=== PATIENT | male | born 1960 | race African-American/Black ===

== ENCOUNTER 2022-12-02 13:09 | Emergency (ER) | payer BC, SELFPAY ==
[2022-12-02] VITALS (9 sets, daily range): BP systolic 176; BP diastolic 96; PULSE 88; RESP 18; TEMP 36.6; O2SAT 100
--- NOTE | ~2022-12-02 | CT_ITS ---
EXAMINATION: CT abdomen pelvis w con DATE: 12/02/2022 15:45 INDICATION: Abdominal pain TECHNIQUE: Computed tomography (CT) of the abdomen and pelvis was performed with 100 mL Omnipaque-350 intravenous contrast. Automated exposure control and iterative reconstruction technique were employe d. The dose-length product was 190.97 mGy-cm. COMPARISON: None FINDINGS: Mild emphysema at the lung bases. Heart size is normal. No pericardial or pleural effusion. Diffuse h epatic steatosis with focal sparing along the gallbladder fossa and small region of more focal fat at the ligamentum teres. Gallbladder, spleen, bilateral adrenal glands and kidneys are normal. There is prominent asymmetric wall thickening at the gastric pylorus and first and second portions of the duo denum with mild haziness to the surrounding fat suggesting inflammation such as in the setting of pep tic ulcer disease. A 12 x 8 mm rim enhancing lesion along the medial side of the pylorus suspicious f or peptic ulcer. Pancreas is unremarkable aside from the from trace stranding about the head and unci demond process. More distal bowels are unremarkable. Bladder is normal. Prostatomegaly measuring 5.0 x 3.7 cm. No abscess or free intraperitoneal gas or fluid. No pathologically enlarged abdominal or pelv ic lymphadenopathy. There is calcified atherosclerosis of the aorta and many of the other arteries. M oderate lumbar and lower thoracic spondylosis. IMPRESSION: 1. Wall thickening at the gastric pylorus and proximal duodenum with inflammatory stranding along the duodenum and head and uncinate process of the pancreas. There appears to be ulceration arising from the gastric pylorus and would favor peptic ulcer disease. Differential would include acute interstiti al pancreatitis and would correlate with amylase and lipase levels. 2. Diffuse hepatic steatosis. 3. Prostatomegaly. Reviewed, dictated and finalized at location A. IMPRESSION: 1. Wall thickening at the gastric pylorus and proximal duodenum with inflammato ry stranding along the duodenum and head and uncinate process of the pancreas. There appears to be ulceration arising from the gastric pylorus and would favor peptic ulcer disease. Differential would include acute interstitial pancreatit is and would correlate with amylase and lipase levels. 2. Diffuse hepatic steatosis. 3. Prostatomegaly.
[2022-12-02] MEDS: SODIUM CHLORIDE 0.9% IV 1,000 ML 999 ML IV CONT (15:06)
[2022-12-02] MEDS: ONDANSETRON INJ 4 MG/2 ML VIAL IV PUSH (15:06)
[2022-12-02 15:13] LABS: Basophils Percent Auto 0.3 % (0.2-1.2); Eosinophils Percent Auto 0.2 % (0-4.4); Hemoglobin 16.9 g/dL (14.0-18.0); Immature Granulocyte Absolute 0.06 K/mm3 (0.00-0.031); Immature Granulocyte Percent A 0.6 % (0-0.5); Lymphocytes Absolute Auto 2.24 K/mm3 (0.9-3.2); Mean Corpuscular HGB Conc 35.2 g/dl (32-36); Mean Corpuscular Hemoglobin 37.1 pg (26-34); Mean Corpuscular Volume 105.3 fl (80-100); Mean Platelet Volume 9.5 fl (7.4-10.4); Monocytes Percent Auto 9.5 % (2.6-8.5); Neutrophils Absolute Auto 7.3 K/mm3 (1.3-6.7); Neutrophils Percent Auto 68.4 % (45.5-73.1); Platelet Count Result 236 k/mm3 (150-375); Red Blood Count 4.56 M/mm3 (4.6-6.20); Red Cell Distribution Width 11.6 % (11.5-14.5); White Blood Count 10.7 K/mm3 (4.5-10.0)
[2022-12-02 15:25] LABS: Alanine Aminotransferase 21 U/L (6-50); Albumin Level 4.4 g/dL (3.5-5.1); Alkaline Phosphatase 86 U/L (38-126); Anion Gap 14 mmol/L (8-16); Aspartate Amino Transferase 31 U/L (17-59); Bilirubin,Total 0.9 mg/dL (0.2-1.3); Blood Urea Nitrogen 9 mg/dL (9-20); Calcium 9.3 mg/dL (8.4-10.2); Carbon Dioxide 18 mmol/L (22-30); Chloride 101 mmol/L (98-107); Estimated CRCL calculation 85 ml/min; Estimated Glomerular Filt Rate > 60; Glucose 120 mg/dL (65-110); Magnesium 1.8 mg/dL (1.6-2.3); Potassium 4.9 mmol/L (3.4-5.0); Sodium 133 mmol/L (137-145)
[2022-12-02 15:57] LABS: Influenza A QL RT-PCR Negative (Negative); Influenza B QL RT-PCR Negative (Negative); SARS-CoV-2 RNA PCR Negative (Negative)
[2022-12-02 16:23] LABS: Lipase 93 U/L (23-300)
[2022-12-02] MEDS: PANTOPRAZOLE 40 MG TABLET PO (16:38)
[2022-12-02 16:44] LABS: Appearance Urine Clear (Clear); Bilirubin Urine Negative (Negative); Blood Urine Negative (Negative); Color Urine Yellow (Yellow); Glucose Urine UA Negative (Negative); Ketones Urine 3+ mg/dL (Negative); Leukocyte Esterase Ur Negative LEU/UL (Negative); Nitrate Urine Negative (Negative); Protein Urine Negative (Negative)
[2022-12-02 17:14] LABS: Add Urine Microscopic? NO; Specific Grav Ur 1.052 (1.001-1.035)
--- NOTE | 2022-12-02 17:51 | ED.GENADULT ---
HPI - General Adult General Chief complaint: Fever Stated complaint: fever Time Seen by Provider: 12/02/22 14:30 History of Present Illness HPI narrative: This is a 62-year-old male, past history of GERD, who presents to the emergency department complaining of intermittent subjective fevers for the past 3 days. The patient also complains of intermittent mild epigastric pain with nausea and nonbloody vomiting. He is associated with decreased appetite which is unusual for him. He denies known sick contacts, recent travel, chest pain, shortness of breath, bleeding from any source or loss of consciousness. Related Data Allergies Allergy/AdvReac Type Severity Reaction Status Date / Time No Known Allergies Allergy Verified 12/02/22 13:16 Review of Systems Review of Systems: CONSTITUTIONAL: Subjective fevers denies chills, or sweats. CARDIOVASCULAR: Denies chest pain, palpitations, or edema. RESPIRATORY: Denies cough or dyspnea. GASTROINTESTINAL: Intermittent epigastric abdominal pain, nausea and nonbloody vomiting denies diarrhea. GENITOURINARY: Denies dysuria or hematuria. SKIN: Denies rash or itching. MUSCULOSKELETAL: Denies back pain, joint pain, or myalgia. NEUROLOGIC: Denies headache, numbness, dizziness, or weakness. PSYCHIATRIC: Denies anxiety or depression. [facility] Past Medical History Medical History GERD (gastroesophageal reflux disease) Social History Social History Smoking status: Current some day smoker Alcohol intake: current Substance use: never Exam Narrative: GENERAL: Well-developed, well-nourished, and in no acute distress. HEAD: Normocephalic, atraumatic. EYES: PERRLA and EOMI. ENT: Nares clear, no rhinorrhea or epistaxis. Mucous membranes moist. Oropharynx without tonsillar hypertrophy exudate or other lesions. CHEST: Clear to auscultation. No respiratory distress. No wheezes rales or rhonchi HEART: Regular rate and rhythm. No murmur heard. Normal peripheral pulses. ABDOMEN: Soft, nontender, nondistended, normal active bowel sounds. EXTREMITIES: Normal range of motion. No edema. SKIN: Warm, dry, no rash. NEURO: Alert and oriented x3. Moving all 4 limbs purposefully. PSYCH: Normal mood and affect. Course Course Emergency Course: 17:45 - CBC demonstrates slightly elevated white blood cell count of 10.7 but is otherwise unremarkable. Chemistries demonstrate mild hyponatremia with sodium of 133 but otherwise unremarkable. UA not concerning for UTI. The patient tested negative for COVID and influenza. CT abdomen pelvis demonstrates changes at the duodenum versus pancreas that may reflect peptic ulcer disease versus pancreatitis. Lipase is not elevated, I suspect peptic ulcer disease. Will discharge with omeprazole and Zofran. Discussed return and emergency precautions including signs/symptoms of acute abdomen and intractable vomiting. The patient voiced understanding and is comfortable with the plan. All questions answered to his satisfaction. Vital Signs Vital signs: Vital Signs Temperature 98 F 12/02/22 13:16 Pulse Rate 88 12/02/22 13:16 Respiratory Rate 18 12/02/22 13:16 Blood Pressure 176/96 H 12/02/22 13:16 Pulse Oximetry 100 12/02/22 13:16 Oxygen Delivery Room Air 12/02/22 13:16 Temperature 97.9 F 12/02/22 14:36 Pulse Rate 88 12/02/22 13:16 Respiratory Rate 18 12/02/22 13:16 Blood Pressure 176/96 H 12/02/22 13:16 Pulse Oximetry 100 12/02/22 16:27 Oxygen Delivery Room Air 12/02/22 13:[address] [facility] Narrative Medical decision making narrative: Plan: Labs, imaging, antiemetics, pain control, reassess Differential Diagnosis Differential Diagnosis: Pancreatitis, malignancy, diverticulitis, UTI, gastritis, peptic ulcer disease, COVID, influenza, metabolic abnormality, other Vital Signs Vital Signs:
== END 2022-12-02 18:31 | disposition home or self-care (01) ==
PROVIDERS: Emergency Provider Preventive Medicine Aerospace Medicine
DX: K26.9 Duodenal ulcer, unspecified as acute or chronic, without hemorrhage or perforation (principal); R11.2 Nausea with vomiting, unspecified; Z20.822 Contact with and (suspected) exposure to COVID-19; K21.9 Gastro-esophageal reflux disease without esophagitis; F17.200 Nicotine dependence, unspecified, uncomplicated
CPT/HCPCS: 36415; 74177; 80053; 81003; 83690; 83735; 85025; 87636; 96361; 96374; 99284; A9270; J2405; J7030; Q9967

== ENCOUNTER 2023-05-15 10:08 | Outpatient (CLI) | payer BC, SELFPAY ==
[2023-05-15 12:27] LABS: Appearance Urine Clear (Clear); Bilirubin Urine Negative (Negative); Blood Urine Negative (Negative); Color Urine Yellow (Yellow); Glucose Urine UA Negative (Negative); Ketones Urine Negative (Negative); Leukocyte Esterase Ur Negative LEU/UL (Negative); Nitrate Urine Negative (Negative); Protein Urine Negative (Negative); Specific Grav Ur 1.009 (1.001-1.035)
[2023-05-15 12:30] LABS: Add Urine Microscopic? NO
[2023-05-15 12:55] LABS: Alanine Aminotransferase 29 U/L (6-50); Albumin Level 4.1 g/dL (3.5-5.1); Alkaline Phosphatase 89 U/L (38-126); Anion Gap 8 mmol/L (8-16); Aspartate Amino Transferase 93 U/L (17-59); Bilirubin,Total 0.8 mg/dL (0.2-1.3); Blood Urea Nitrogen 5 mg/dL (9-20); Calcium 8.8 mg/dL (8.4-10.2); Carbon Dioxide 26 mmol/L (22-30); Chloride 107 mmol/L (98-107); Estimated Glomerular Filt Rate > 60; Glucose 90 mg/dL (65-110); Sodium 141 mmol/L (137-145)
[2023-05-15 13:12] LABS: Thyroid Stimulating Hormone 0.696 uIU/mL (0.465-4.680)
[2023-05-15 13:18] LABS: Hemoglobin A1C 6.2 % (<5.7)
[2023-05-15 13:19] LABS: HIV 1/2 Ab P24 Ag Result Negative (Negative)
[2023-05-15 13:23] LABS: Hepatitis B Surface Antigen Negative (Negative)
[2023-05-15 13:23] LABS: Potassium 3.6 mmol/L (3.4-5.0)
[2023-05-15 13:23] LABS: Creatinine Urine 70.7 mg/dL
[2023-05-15 13:29] LABS: MALB Creatinine Ratio 55.3 mg/g (0-30); Microalbumin Urine Random 39.1 mg/L (0-16.7)
[2023-05-15 13:40] LABS: Hepatitis C Virus Antibody Negative (Negative)
[2023-05-15 14:07] LABS: Chlamydia trachomatis NOT DETECTED (NOT DETECTE); Neisseria gonorrhoeae PCR NOT DETECTED (NOT DETECTE)
[2023-05-15 15:12] LABS: Rapid Plasma Reagin Non-Reactive (NonReactive)
[2023-05-15 16:01] LABS: Prostate Specific Antigen 1.6 ng/mL (< OR = 4.0)
[2023-05-20 09:38] LABS: Thyroid Peroxidase Antibodies <1
[2023-05-20 09:39] LABS: Herpes Simplex Type 1 DNA PCR Not Detected; Herpes Simplex Type 2 DNA PCR Not Detected
== END 2023-05-15 10:09 | disposition home or self-care (01) ==
LOC: ANHGOSHLAB 10:09
PROVIDERS: Visit Provider Clinical Nurse Specialist
DX: F10.20 Alcohol dependence, uncomplicated (principal); I10 Essential (primary) hypertension; Z13.220 Encounter for screening for lipoid disorders; Z13.228 Encounter for screening for other metabolic disorders; Z86.19 Personal history of other infectious and parasitic diseases; R63.4 Abnormal weight loss; Z20.2 Contact with and (suspected) exposure to infections with a predominantly sexual mode of transmission; Z12.5 Encounter for screening for malignant neoplasm of prostate
CPT/HCPCS: 36415; 80053; 81003; 82043; 83036; 84153; 84443; 86376; 86592; 86703; 86803; 87340; 87491; 87529; 87591; G0103; G0432

== ENCOUNTER 2023-06-20 08:10 | Outpatient (CLI) | payer BC, SELFPAY ==
[2023-06-20 13:23] LABS: Basophils Percent Auto 0.4 % (0.2-1.2); Eosinophils Absolute Auto 0.1 K/mm3 (0-0.3); Eosinophils Percent Auto 0.8 % (0-4.4); Hematocrit 39.6 % (42.0-52.0); Hemoglobin 13.7 g/dL (14.0-18.0); Immature Granulocyte Absolute 0.04 K/mm3 (0.00-0.031); Immature Granulocyte Percent A 0.5 % (0-0.5); Lymphocytes Absolute Auto 3.25 K/mm3 (0.9-3.2); Lymphocytes Percent Auto 41.8 % (18.3-44.2); Mean Corpuscular HGB Conc 34.6 g/dl (32-36); Mean Corpuscular Hemoglobin 36.9 pg (26-34); Mean Corpuscular Volume 106.7 fl (80-100); Mean Platelet Volume 9.9 fl (7.4-10.4); Monocytes Absolute Auto 0.8 K/mm3 (0.1-0.6); Monocytes Percent Auto 10.5 % (2.6-8.5); Neutrophils Absolute Auto 3.6 K/mm3 (1.3-6.7); Platelet Count Result 398 k/mm3 (150-375); Red Blood Count 3.71 M/mm3 (4.6-6.20); Red Cell Distribution Width 12.5 % (11.5-14.5); White Blood Count 7.8 K/mm3 (4.5-10.0)
[2023-06-20 13:44] LABS: Cholesterol 148 mg/dL (0-200); HDL Direct 72 mg/dL; Triglycerides 73 mg/dL (<150)
[2023-06-20 14:13] LABS: LDL Cholesterol Direct 65 mg/dL
[2023-06-20 14:59] LABS: Folic Acid 11.2 ng/mL (2.76->20)
[2023-06-24 12:03] LABS: NIL 0.03 IU/mL; Quantiferon TB Plus, 1T POSITIVE (NEGATIVE); TB1-NIL 8.55 IU/mL; TB2-NIL 8.54 IU/mL
== END 2023-06-20 08:11 | disposition home or self-care (01) ==
LOC: ANHGOSHLAB 08:11
PROVIDERS: PCP Internal Medicine; Visit Provider Clinical Nurse Specialist
DX: F10.20 Alcohol dependence, uncomplicated (principal); I10 Essential (primary) hypertension; Z13.220 Encounter for screening for lipoid disorders; Z86.19 Personal history of other infectious and parasitic diseases; Z13.228 Encounter for screening for other metabolic disorders
CPT/HCPCS: 36415; 80061; 82607; 82746; 85025; 86480

== ENCOUNTER 2023-09-02 16:11 | Outpatient (CLI) | payer BC, SELFPAY ==
--- NOTE | ~2023-09-02 | XR_ITS ---
EXAMINATION: XR chest 2V 09/02/2023 16:32 INDICATION: Exposure to tuberculosis PROCEDURE: 2 view chest COMPARISON: No prior studies for comparison. FINDINGS: The lungs are clear. The lungs are hyperinflated which is consistent with, but not diagnost ic of chronic obstructive pulmonary disease. The cardiomediastinal silhouette is within normal limit s. There are no pleural effusions. There is no pneumothorax suspected. IMPRESSION: 1: NO ACUTE CARDIOPULMONARY DISEASE. Reviewed, dictated and finalized at location B.
== END 2023-09-02 16:12 | disposition home or self-care (01) ==
LOC: ANHIMG 16:13
PROVIDERS: PCP Internal Medicine; Visit Provider Clinical Nurse Specialist
DX: Z20.1 Contact with and (suspected) exposure to tuberculosis (principal)
CPT/HCPCS: 71046

== ENCOUNTER 2023-10-28 02:05 | Day surgery (SDC) | payer BC, SELFPAY ==
[2023-10-24 08:58] VITALS: BMI 19.1
[2023-10-28 06:12] VITALS: BP 164/95; PULSE 96; RESP 18; TEMP 36.3; O2SAT 100; BMI 19.1
[2023-10-28] MEDS: LACTATED RINGERS 1,000 ML 150 ML IV CONT (06:39)
--- NOTE | 2023-10-28 06:41 | P.PNAN_ITS ---
Anes - Initial Pre Proc Eval Procedure: Operation Date: 10/28/23 07:30 Proposed Procedures p Esophagogastroduodenoscopy & Colonoscopy - Shar Mancera MD Date/Time: 10/28/23 06:41 Surgeon: Shar Mancera MD Pre Op Diagnosis: Anemia, GERD, Abnormal Wt. Loss Patient Data Age: 63 Gender: M Height: 1.65 m Weight: 52.1 kg Last Vital Signs Temp 36.3 C L 10/28/23 06:12 Pulse 96 10/28/23 06:12 Resp 18 10/28/23 06:12 BP 164/95 H 10/28/23 06:12 Pulse Ox 100 10/28/23 06:12 O2 Del Method Room Air 10/28/23 06:12 Allergies Allergy/AdvReac Type Severity Reaction Status Date / Time No Known Allergies Allergy Verified 10/28/23 06:27 Home Medications Medication Instructions Recorded Confirmed Type sildenafil 50 mg tablet 50 mg PO DAILY PRN sexual activity 06/20/23 10/28/23 Rx #30 tabs amlodipine 10 mg tablet 10 mg PO DAILY #90 tabs 10/01/23 10/28/23 Rx Patient hx anesthesia problems: none Family hx anesthesia problems: none Results Review: All pre-operative results and documents have been reviewed as part of the pre- operative evaluation. [facility], [facility] Past Medical History Medical History (Updated 10/03/23 @ 13:30 by SILVA Fine-C) GERD (gastroesophageal reflux disease) Family History Family History Mother Breast cancer Social History Social History Smoking packs per day: 0.5 Smoking cigarettes per day: 10.0 Years smoked: 49 Smoking pack-years: 24.50 Smoking status: Current every day smoker Tobacco type: cigarettes Alcohol intake: current Drinks per week: 14 Alcohol use details: Drinks sotero 2x daily Substance use: never Substance use type: does not use Lack of Transportation: No Lack of Food: Never True Current Housing: I Have Housing Concerned About Future Housing: No Difficulty Paying Gas/Electric Bills: No Difficulty Paying for Meds: No Currently Unemployed: No Education: Trade/Vocational Certificate Difficulty w/ Childcare or Family Care: No Living arrangements: with family Occupation/Education: occupation Additional occupation/education comments: [employer] Gender identity (if verbalized by the patient): Male Spiritual care concerns: No Anes - Eval Final PreProcedure Day of Procedure 10/28/23 06:41 Patient weight: normal Heart: regular rate and rhythm Lungs: clear to auscultation Airway: Mallampati scale class 1 Neurological: alert and oriented Last oral intake: >/= 8 hours ASA classification: III Emergent: no Anesthetic plan: proceed Anesthesia type and monitoring: general and standard monitoring Results Review: All pre-operative results and documents have been reviewed as part of the pre- operative evaluation. Informed Consent: The patient's anesthetic plan and its attendant risks and benefits were discussed with the patient/family/POA. Questions were solicited and answers provided to the satisfaction of the patient/family/POA.
--- NOTE | 2023-10-28 07:27 | P.HP_ITS ---
History of Present Illness History of Present Illness Consent: Risks, benefits, and alternatives have been discussed and questions answered. Patient agrees to proceed with procedure. Chief complaint: Anemia, GERD, Abnormal Wt. Loss Narrative: Kody Franco is a 63 year old male here for first egd and colonoscopy, indication is weight loss. Review of Systems Review of Systems: All systems reviewed & are unremarkable except as noted in HPI and below PMFSH Past Medical History Medical History (Updated 10/28/23 @ 07:28 by Shar Mancera MD) GERD (gastroesophageal reflux disease) Weight loss Family History Family History Mother Breast cancer Social History Social History Smoking packs per day: 0.5 Smoking cigarettes per day: 10.0 Years smoked: 49 Smoking pack-years: 24.50 Smoking status: Current every day smoker Tobacco type: cigarettes Alcohol intake: current Drinks per week: 14 Alcohol use details: Drinks sotero 2x daily Substance use: never Substance use type: does not use Lack of Transportation: No Lack of Food: Never True Current Housing: I Have Housing Concerned About Future Housing: No Difficulty Paying Gas/Electric Bills: No Difficulty Paying for Meds: No Currently Unemployed: No Education: Trade/Vocational Certificate Difficulty w/ Childcare or Family Care: No Living arrangements: with family Occupation/Education: occupation 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 [employer] Gender identity (if verbalized by the patient): Male Spiritual care concerns: No Meds Home Medications and Allergies Home Medications Medication Instructions Recorded Confirmed Type sildenafil 50 mg tablet 50 mg PO DAILY PRN sexual activity 06/20/23 10/28/23 Rx #30 tabs amlodipine 10 mg tablet 10 mg PO DAILY #90 tabs 10/01/23 10/28/23 Rx Allergies Allergy/AdvReac Type Severity Reaction Status Date / Time No Known Allergies Allergy Verified 10/28/23 06:27 Vital Signs Vital Signs - 24 hr 10/28/23 06:12 Temperature 97.4 F L Pulse Rate 96 Respiratory Rate 18 Blood Pressure 164/95 H Pulse Oximetry 100 Oxygen Delivery Room Air Exam Const: General: comfortable and no acute distress HENMT: Face/Nose/Sinus: Normal nares present Eyes: General: appearance normal, both eyes and all related structures Neck: Neck: no JVD Resp: Auscultation: clear to auscultation bilaterally Cardio: Rate: regular rate Rhythm: regular rhythm GI: Inspection: non-distended GI Palp: Yes Soft to palpation Skin: General skin exam: normal color Neuro: General: gait normal Speech: normal speech Extrem: General: normal to inspection Psych: Mental Status: mental status grossly normal Assessment and Plan Assessment and plan (1) Anemia: Code(s): D64.9 - Anemia, unspecified Status: Acute (2) Weight loss: Code(s): R63.4 - Abnormal weight loss Status: Acute Assessment and Plan: egd and colonoscopy
--- NOTE | 2023-10-28 07:45 | SUR.OPER ---
EGD start 734, end 738. Colonoscopy start time 742
[2023-10-28 08:02] VITALS: BP 133/92; PULSE 95; RESP 22; O2SAT 100
[2023-10-28 08:12] VITALS: BP 112/73; PULSE 86; RESP 20; O2SAT 100
[2023-10-28 08:16] VITALS: BP 143/90; PULSE 80; RESP 9; O2SAT 100
== END 2023-10-28 08:36 | disposition home or self-care (01) ==
PROVIDERS: PCP Internal Medicine; Referring Provider Clinical Nurse Specialist; Visit Provider Internal Medicine Gastroenterology
PROC: 0DJ08ZZ Inspection of Upper Intestinal Tract, Via Natural or Artificial Opening Endoscopic (ICD-10-PCS; CPT 43235; principal; 2023-10-28 07:30)
DX: D64.9 Anemia, unspecified (principal); D12.3 Benign neoplasm of transverse colon; D12.8 Benign neoplasm of rectum; K64.8 Other hemorrhoids; R63.4 Abnormal weight loss; K21.9 Gastro-esophageal reflux disease without esophagitis; F17.210 Nicotine dependence, cigarettes, uncomplicated; Z68.1 Body mass index [BMI] 19.9 or less, adult
CPT/HCPCS: 45380; 45385; 43239; 88305; J2704; J7120

== ENCOUNTER 2023-11-25 06:52 | Outpatient (CLI) | payer BC, SELFPAY ==
--- NOTE | ~2023-11-25 | CT_ITS ---
CT Scan of the Chest without Contrast: Clinical Indication: Lung cancer screening, nicotine dependence Technique: Contiguous sections were acquired throughout the chest without intravenous contrast. Dose reduction technique was used on this scan by utilizing automated exposure control and iterative recon struction technique. The dose-length product (DLP) was 67.40 mGy-cm. Findings: There is no evidence of any significant mediastinal, hilar or axillary lymphadenopathy. The mediastin al soft tissues appear normal. There is no evidence of pleural or pericardial effusion. There is moderate emphysema with right apical scarring. No pulmonary nodule evident. Images through the upper abdomen reveal diffuse hepatic steatosis. Impression: Lung RADS 2: Benign appearance. 12 month follow-up screening CT advised. Reviewed, dictated and finalized at location . Impression: Lung RADS 2: Benign appearance. 12 month follow-up screening CT advised.
--- NOTE | ~2023-11-25 | CT_ITS ---
CT of the Abdomen and Pelvis: Indication: Abnormal weight loss Technique: 2.5 mm axial scans were obtained through the abdomen and pelvis following intravenous adm inistration of 100 cc of Omnipaque 350. Dose reduction technique was used on this scan by utilizing a utomated exposure control and iterative reconstruction technique. The dose-length product (DLP) was 1 80.87 mGy-cm. COMPARISON: 12/02/2022 Findings: Scans through the lung bases are unremarkable. There is marked, diffuse hepatic steatosis. The spleen, pancreas, gallbladder, adrenals and kidneys a re within normal limits. Questionable minimal peripancreatic haziness. There are extensive atheroscle rotic calcifications of the aorta and iliac vessels. No lymphadenopathy. Possible mild diffuse large bowel wall thickening. Images through the pelvis were performed. Urinary bladder unremarkable. No pelvic mass seen. No ascit es. Impression: Suspected mild diffuse large bowel wall thickening. Correlate for infectious/inflammatory colitis. Diffuse hepatic steatosis. Questionable minimal peripancreatic haziness. Consider mild acute pancreatitis. Correlate with serum amylase/lipase levels. Reviewed, dictated and finalized at [facility]. Impression: Suspected mild diffuse large bowel wall thickening. Correlate for infectious/in flammatory colitis. Diffuse hepatic steatosis. Questionable minimal peripancreatic haziness. Consider mild acute pancreatitis. Correlate with serum amylase/lipase levels.
[2023-11-25 08:20] LABS: Basophils Absolute Auto 0.1 K/mm3 (0.0-0.1); Basophils Percent Auto 0.6 % (0.2-1.2); Eosinophils Absolute Auto 0.1 K/mm3 (0-0.3); Eosinophils Percent Auto 0.8 % (0-4.4); Hematocrit 37.3 % (42.0-52.0); Hemoglobin 13.2 g/dL (14.0-18.0); Immature Granulocyte Absolute 0.03 K/mm3 (0.00-0.031); Immature Granulocyte Percent A 0.3 % (0-0.5); Lymphocytes Absolute Auto 3.15 K/mm3 (0.9-3.2); Lymphocytes Percent Auto 35.8 % (18.3-44.2); Mean Corpuscular HGB Conc 35.4 g/dl (32-36); Mean Corpuscular Hemoglobin 37.6 pg (26-34); Mean Corpuscular Volume 106.3 fl (80-100); Mean Platelet Volume 9.2 fl (7.4-10.4); Monocytes Absolute Auto 0.7 K/mm3 (0.1-0.6); Neutrophils Absolute Auto 4.8 K/mm3 (1.3-6.7); Neutrophils Percent Auto 54.5 % (45.5-73.1); Platelet Count Result 289 k/mm3 (150-375); Red Blood Count 3.51 M/mm3 (4.6-6.20); White Blood Count 8.8 K/mm3 (4.5-10.0)
[2023-11-25 08:42] LABS: Alanine Aminotransferase 35 U/L (6-50); Albumin Level 3.8 g/dL (3.5-5.1); Alkaline Phosphatase 97 U/L (38-126); Anion Gap 12 mmol/L (4-12); Aspartate Amino Transferase 130 U/L (17-59); Blood Urea Nitrogen 6 mg/dL (9-20); Calcium 8.1 mg/dL (8.4-10.2); Carbon Dioxide 31 mmol/L (22-30); Chloride 91 mmol/L (98-107); Estimated Glomerular Filt Rate > 60; Glucose 105 mg/dL (65-110); Potassium 2.7 mmol/L (3.4-5.0); Sodium 134 mmol/L (137-145)
[2023-11-25 09:14] LABS: Erythrocyte Sedimentation Rate 12 mm/hr (0-20)
[2023-11-25 10:03] LABS: Creatinine Urine 37.1 mg/dL
[2023-11-25 10:06] LABS: MALB Creatinine Ratio 116.7 mg/g (0-30); Microalbumin Urine Random 43.3 mg/L (0-16.7)
[2023-11-25 10:32] LABS: Anisocytosis 1+; Platelet Estimate Adequate (Adequate); Schistocytes None Seen
[2023-11-25 12:13] LABS: Amylase 91 U/L (30-110); Lipase 67 U/L (23-300)
[2023-11-28 11:57] LABS: Estimated Glomerular Filt Rate > 60
[2023-12-04 18:38] LABS: Thyroid Stimulating Immunoglob <89 % baseline (<140)
== END 2023-11-25 06:53 | disposition home or self-care (01) ==
LOC: ANHIMG 06:54
PROVIDERS: PCP Internal Medicine; Visit Provider Clinical Nurse Specialist
DX: R63.4 Abnormal weight loss (principal); F10.20 Alcohol dependence, uncomplicated; K76.0 Fatty (change of) liver, not elsewhere classified; Z72.0 Tobacco use; I10 Essential (primary) hypertension
CPT/HCPCS: 36415; 71271; 74177; 80053; 82043; 82150; 82607; 83036; 83690; 84443; 84445; 85025; 85652; 88305; Q9967

== ENCOUNTER → 2023-11-25 15:36 | Outpatient (REF) | payer BC, SELFPAY | LOC: ANHLAB 15:36 | PROVIDERS: PCP Internal Medicine; Visit Provider Plastic Surgery | DX: C44.319 Basal cell carcinoma of skin of other parts of face (principal) | CPT/HCPCS: 88305 ==

== ENCOUNTER 2023-11-28 06:46 | Outpatient (CLI) | payer BC, SELFPAY ==
[2023-11-28 08:38] LABS: Anion Gap 14 mmol/L (4-12); Blood Urea Nitrogen 4 mg/dL (9-20); Calcium 8.6 mg/dL (8.4-10.2); Carbon Dioxide 23 mmol/L (22-30); Chloride 102 mmol/L (98-107); Estimated Glomerular Filt Rate > 60; Glucose 121 mg/dL (65-110); Potassium 3.8 mmol/L (3.4-5.0); Sodium 139 mmol/L (137-145)
== END 2023-11-28 06:47 | disposition home or self-care (01) ==
LOC: ANHLAB 06:48
PROVIDERS: PCP Internal Medicine; Visit Provider Clinical Nurse Specialist
DX: E87.6 Hypokalemia (principal)
CPT/HCPCS: 36415; 80048

== ENCOUNTER 2024-04-07 17:03 | Inpatient (IN) | payer BC, SELFPAY ==
--- NOTE | ~2024-04-07 | XR_ITS ---
EXAMINATION: XR chest 2V DATE: 04/08/2024 08:39 INDICATION: Lactic acidosis. TECHNIQUE: Frontal and lateral views of the chest were obtained. COMPARISON: Chest 2 views 09/02/2023, chest CT 11/25/2023 FINDINGS: The lungs are hyperexpanded with lucencies, consistent with emphysema. There is mild scarri ng at right lung apex. No pleural effusion or pneumothorax. The heart size is normal. IMPRESSION: 1. Emphysema. Reviewed, dictated and finalized at location [] ST ECOLOGIST IMPRESSION: 1. Emphysema.
--- NOTE | ~2024-04-07 | XR_ITS ---
HISTORY: left knee pain, swelling COMPARISON: None TECHNIQUE: 3 views of the left knee were performed FINDINGS: No acute or subacute fracture. Multiple serpiginous foci of increased density incidentally detected within the distal femur and prox imal tibia, consistent with bone infarction. Medial tibiofemoral joint space narrowing is identified. Small suprapatellar joint effusion is identified. The infrapatellar joint space is clear. Calcified atherosclerotic disease. Ossification of the insertion of the quadriceps tendon is present. IMPRESSION: Small suprapatellar joint effusion, without acute or subacute fracture, as detailed above. Reviewed, dictated and finalized at location A. UCTION SUPPORT SUPERVISOR IMPRESSION: Small suprapatellar joint effusion, without acute or subacute fracture, as detcristal ilemaycol above.
[2024-04-07 17:08] VITALS: BP 161/113; PULSE 130; RESP 16; TEMP 36.7; O2SAT 97
--- NOTE | 2024-04-07 17:25 | ED_ITS ---
HPI - Extremity Injury (Lower) General Chief Complaint: Extremity Problem,Nontraumatic <Estela Perez PA-C - Last Filed: 04/07/24 22:38> Stated Complaint: LEFT KNEE PAIN <Estela Perez PA-C - Last Filed: 04/07/24 22:38> Time Seen by Provider: 04/07/24 17:12 <Estela Perez PA-C - Last Filed: 04/07/24 22:38> Source: patient <Estela Perez PA-C - Last Filed: 04/07/24 22:38> Mode of arrival: ambulatory <ALLA Almeida Last Filed: 04/07/24 22:38> Limitations: no limitations <Estela Perez PA-C - Last Filed: 04/07/24 22:38> History of Present Illness HPI Narrative: This is a 63 year old male that presents to the ER for left knee pain and swelling. Ongoing over the last several months. No recent injury or trauma. He has not been taking anything for pain. Reports a similar episode a couple of years ago without certain diagnosis. He has been self medicating with alcohol. Denies fever, erythema, numbness or weakness. <Estela Perez PA-C - Last Filed: 04/07/24 22:38> Related Data Allergies/Adverse Reactions: Allergies Allergy/AdvReac Type Severity Reaction Status Date / Time No Known Allergies Allergy Verified 04/07/24 17:05 <Estela Perez PA-C - Last Filed: 04/07/24 22:38> Review of Systems 2 Review of Systems: CONSTITUTIONAL: Denies fever SKIN: Denies rash MUSCULOSKELETAL: Reports joint pain, and myalgia. NEUROLOGIC: Denies numbness, or weakness. <Estela Perez PA-C - Last Filed: 04/07/24 22:38> All systems reviewed & are unremarkable except as noted in HPI and below < Estela Perez PA-C - Last Filed: 04/07/24 22:38> PMFSH Past Medical History Medical History: Medical History Elevated transaminase level Basal cell carcinoma of head Weight loss GERD (gastroesophageal reflux disease) <Estela Perez PA-C - Last Filed: 04/07/24 22:38> Family History Family History: Family History Mother Breast cancer <Estela Perez PA-C - Last Filed: 04/07/24 22:38> Social History Social History: Social History Smoking packs per day: 1 Smoking cigarettes per day: 20.0 Years smoked: 49 Smoking pack-years: 49.00 Smoking status: Current every day smoker Tobacco type: cigarettes Alcohol intake: current Drinks per week: 14 Alcohol use details: Drinks sotero 2x daily Substance use: never Substance use type: does not use Do You Feel Safe in your Home?: Yes Lack of Transportation: YES Lack of Food: Never True Current Housing: I Have Housing Concerned About Future Housing: No Difficulty Paying Gas/Electric Bills: No Difficulty Paying for Meds: No Currently Unemployed: No Education: Decline to Answer Difficulty w/ Childcare or Family Care: No Living arrangements: with family Occupation/Education: occupation Additional occupation/education comments: [employer] Gender identity (if verbalized by the patient): Male Spiritual care concerns: No Agree to blood products: No <ALLA Almeida Last Filed: 04/07/24 22:38> Exam 2 Narrative: GENERAL: Well-appearing, thin, and in no acute distress. HEAD: Normocephalic, atraumatic. EYES: EOMI. ENT: Nares clear, no rhinorrhea or epistaxis. Mucous membranes moist. Oropharynx without tonsillar hypertrophy exudate or other lesions. CHEST: Clear to auscultation. No respiratory distress. No wheezes rales or rhonchi HEART: Tachycardic, regular rhythm. No murmur heard. Normal peripheral pulses. EXTREMITIES: Normal range of motion. Mild edema about the left knee anteriorly. Normal DP pulse. Normal sensation. No erythema or warmth SKIN: Warm, dry, no rash. NEURO: No focal deficits. Alert and oriented x3. PSYCH: Normal mood and affect <ALLA Almeida Last Filed: 04/07/24 22:38> Course Course Emergency Course: patient and family updated on work and need for admission <Estela Perez PA-C - Last Filed: 04/07/24 22:38> Patient and family updated on work and need for admission <Sergio Hickman MD - Last Filed: 04/08/24 02:30> [employer]/PA Physician Supervision For this patient encounter, I reviewed the SUPERVISOR [employer] or PA documentation, treatment plan, and medical decision making and had [id number] time with this patient. I performed all aspects of the MDM as documented. <Sergio Hickman MD - Last Filed: 04/08/24 02:30> Consultations Consultation #1: Spoke with Dr. Lind about patient and workup. Patient may follow up outpatient for avascular necrosis of the knee <Estela Perez PA-C - Last Filed: 04/07/24 22:38> Date: 04/07/24 <Estela Perez PA-C - Last Filed: 04/07/24 22:38> Consultation #2: Spoke with hospitalist about patient and workup who accepts admission < Estela Perez PA-C - Last Filed: 04/07/24 22:38> Date: 04/07/24 <Estela Perez PA-C - Last Filed: 04/07/24 22:38> Vital Signs Vital signs: Vital Signs Temperature 98.1 F 04/07/24 17:08 Pulse Rate 130 H 04/07/24 17:08 Respiratory Rate 16 04/07/24 17:08 Blood Pressure 161/113 H 04/07/24 17:08 Pulse Oximetry 97 04/07/24 17:08 Oxygen Delivery Room Air 04/07/24 17:08 Temperature 98.2 F 04/08/24 00:00 Pulse Rate 88 04/08/24 02:00 Respiratory Rate 17 04/08/24 00:00 Blood Pressure 149/84 H 04/08/24 00:00 Pulse Oximetry 94 04/08/24 00:00 Oxygen Delivery Room Air 04/08/24 00:00 <Estela Perez PA-C - Last Filed: 04/07/24 22:38> Vital Signs Temperature 98.1 F 04/07/24 17:08 Pulse Rate 130 H 04/07/24 17:08 Respiratory Rate 16 04/07/24 17:08 Blood Pressure 161/113 H 04/07/24 17:08 Pulse Oximetry 97 04/07/24 17:08 Oxygen Delivery Room Air 04/07/24 17:08 Temperature 98.2 F 04/08/24 00:00 Pulse Rate 88 04/08/24 02:00 Respiratory Rate 17 04/08/24 00:00 Blood Pressure 149/84 H 04/08/24 00:00 Pulse Oximetry 94 04/08/24 00:00 Oxygen Delivery Room Air 04/08/24 00:00 <Sergio Hickman MD - Last Filed: 04/08/24 02:30> MDM - Extremity Injury (Lower) MDM Narrative Medical decision making narrative: Patient presents to the ER for left knee pain. Ongoing over the last several months. No recent injury. Patient is neurovascularly intact. Also reporting weight loss, decreased PO intake. Tachycardic upon arrival this did respond to IV fluids. CBC without leukocytosis. Inflammatory markers are not elevated. Uric acid is normal. Left knee x-ray shows small suprapatellar joint effusion. Necrosis of the distal femur as well as proximal tibia. Spoke with Dr. Lind about patient and workup. Patient may follow up outpatient for avascular necrosis of the knee. Patient's metabolic panel with evidence of alcoholic ketoacidosis. Will be admitted for further management. Spoke with hospitalist about patient and workup who accepts admission <Estela Perez PA-C - Last Filed: 04/07/24 22:38> Differential Diagnosis Differential diagnosis: Likely acute internal derangement of knee and other (osteoarthritis, osteonecrosis, gout, dehydration, alcoholic ketoacidosis) <Estela Perez PA-C - Last Filed: 04/07/24 22:38> Lab Data Attestation: I reviewed the patient's lab results. <Estela Perez PA-C - Last Filed: 04/07/24 22:38> Result diagrams: 04/07/24 17:41 04/07/24 17:41 <Estela Perez PA-C - Last Filed: 04/07/24 22:38> Labs: Lab Results 01/04/07/24 04/07/24 Range/Units 17:40 17:41 20:14 WBC 8.8 (4.5-10.0) K/mm3 RBC 4.19 L (4.6-6.20) M/mm3 Hgb 14.7 (14.0-18.0) g/dL Hct 42.9 (42.0-52.0) % MCV 102.4 H (80-100) fl MCH 35.1 H (26-34) pg MCHC 34.3 (32-36) g/dl RDW 15.3 H (11.5-14.5) % Plt Count 252 (150-375) k/mm3 MPV 8.6 (7.4-10.4) fl Immature Gran % (Auto) 0.2 (0-0.5) % Neut % (Auto) 58.4 (45.5-73.1) % Lymph % (Auto) 37.2 (18.3-44.2) % [place] % (Auto) 3.8 (2.6-8.5) % Eos % (Auto) 0.1 (0-4.4) % Baso % (Auto) 0.3 (0.2-1.2) % Lymph # (Auto) 3.27 H (0.9-3.2) K/mm3 [place] # (Auto) 0.3 (0.1-0.6) K/mm3 Eos # (Auto) 0.0 (0-0.3) K/mm3 Baso # (Auto) 0.0 (0.0-0.1) K/mm3 Abs Immat Gran (auto) 0.02 (0.00-0.031) K/mm3 Absolute Neuts (auto) 5.1 (1.3-6.7) K/mm3 Absolute Nucleated RBC 0.000 (0.0-0.012) K/mm3 Nucleated RBC % 0.0 (0.0-0.2) % ESR 8 (0-20) mm/hr PT 13.9 (11.1-14.7) Seconds INR 1.0 APTT 27.5 (22.3-36.8) Seconds Methemoglobin 0.3 (0-1.5) %THb Sodium 139 (137-145) mmol/L Potassium 3.5 (3.4-5.0) mmol/L Chloride 97 L (98-107) mmol/L Carbon Dioxide 14 L (22-30) mmol/L Anion Gap 28 H (4-12) mmol/L BUN 7 L (9-20) mg/dL Creatinine 0.44 L (0.7-1.3) mg/dL Estim Creat Clear Calc 100 ml/min Estimated GFR > 60 (59 - ) Glucose 114 H (65-110) mg/dL Hemoglobin A1c 5.9 H (<5.7) % Lactic Acid (0.7-2.0) mmol/L Uric Acid 6.8 (3.5-8.5) mg/dL Calcium 8.9 (8.4-10.2) mg/dL Phosphorus 5.5 H (2.5-4.5) mg/dL Magnesium 1.4 L (1.6-2.3) mg/dL Total Bilirubin 1.6 H (0.2-1.3) mg/dL AST 116 H (17-59) U/L ALT 30 (6-50) U/L Alkaline Phosphatase 122 (38-126) U/L C-Reactive Protein < 0.5 (<1.0) mg/dL Total Protein 8.0 (6.3-8.2) g/dL Albumin 4.9 (3.5-5.1) g/dL Beta-Hydroxybutyrate/Acetoacetate (0.02-0.27) mmol/L Urine Color (Yellow) Urine Appearance (Clear) Urine pH (5.0-9.0) Ur Specific [place] (1.001-1.035) Urine Protein (Negative) mg/dL Urine Glucose (UA) (Negative) mg/dL Urine Ketones (Negative) mg/dL Ur Blood (Man) (Negative) Urine Nitrate (Negative) Urine Bilirubin (Negative) Urine Urobilinogen (<2.0) mg/dL Leukocyte Esterase Rfl (Negative) MALKA/UL Urine RBC (0-2) /hpf Urine WBC (0-3) /hpf Ur Squamous Epith Cells (Few) /hpf Urine Bacteria /hpf Urine Casts 04/07/24 Range/Units 20:16 WBC (4.5-10.0) K/mm3 RBC (4.6-6.20) M/mm3 Hgb (14.0-18.0) g/dL Hct (42.0-52.0) % MCV (80-100) fl MCH (26-34) pg MCHC (32-36) g/dl RDW (11.5-14.5) % Plt Count (150-375) k/mm3 MPV (7.4-10.4) fl Immature Gran % (Auto) (0-0.5) % Neut % (Auto) (45.5-73.1) % Lymph % (Auto) (18.3-44.2) % [place] % (Auto) (2.6-8.5) % Eos % (Auto) (0-4.4) % Baso % (Auto) (0.2-1.2) % Lymph # (Auto) (0.9-3.2) K/mm3 [place] # (Auto) (0.1-0.6) K/mm3 Eos # (Auto) (0-0.3) K/mm3 Baso # (Auto) (0.0-0.1) K/mm3 Abs Immat Gran (auto) (0.00-0.031) K/mm3 Absolute Neuts (auto) (1.3-6.7) K/mm3 Absolute Nucleated RBC (0.0-0.012) K/mm3 Nucleated RBC % (0.0-0.2) % ESR (0-20) mm/hr PT (11.1-14.7) Seconds INR APTT (22.3-36.8) Seconds Methemoglobin (0-1.5) %THb Sodium (137-145) mmol/L Potassium (3.4-5.0) mmol/L Chloride (98-107) mmol/L Carbon Dioxide (22-30) mmol/L Anion Gap (4-12) mmol/L BUN (9-20) mg/dL Creatinine (0.7-1.3) mg/dL Estim Creat Clear Calc ml/min Estimated GFR (59 - ) Glucose (65-110) mg/dL Hemoglobin A1c (<5.7) % Lactic Acid 6.7 H* (0.7-2.0) mmol/L Uric Acid (3.5-8.5) mg/dL Calcium (8.4-10.2) mg/dL Phosphorus (2.5-4.5) mg/dL Magnesium (1.6-2.3) mg/dL Total Bilirubin (0.2-1.3) mg/dL AST (17-59) U/L ALT (6-50) U/L Alkaline Phosphatase (38-126) U/L C-Reactive Protein (<1.0) mg/dL Total Protein (6.3-8.2) g/dL Albumin (3.5-5.1) g/dL Beta-Hydroxybutyrate/Acetoacetate 3.59 H (0.02-0.27) mmol/L Urine Color Yellow (Yellow) Urine Appearance Clear (Clear) Urine pH 5.0 (5.0-9.0) Ur Specific [place] 1.010 (1.001-1.035) Urine Protein Trace (Negative) mg/dL Urine Glucose (UA) Negative (Negative) mg/dL Urine Ketones 2+ H (Negative) mg/dL Ur Blood (Man) Negative (Negative) Urine Nitrate Negative (Negative) Urine Bilirubin Negative (Negative) Urine Urobilinogen 0.2 (<2.0) mg/dL Leukocyte Esterase Rfl Negative (Negative) MALKA/UL Urine RBC 0-2 (0-2) /hpf Urine WBC 0-5 (0-3) /hpf Ur Squamous Epith Cells None seen (Few) /hpf Urine Bacteria None seen /hpf Urine Casts 3-5 <Estela Perez PA-C - Last Filed: 04/07/24 22:38> Lab Results 04/07/24 04/07/24 04/07/24 Range/Units 17:40 17:41 20:14 WBC 8.8 (4.5-10.0) K/mm3 RBC 4.19 L (4.6-6.20) M/mm3 Hgb 14.7 (14.0-18.0) g/dL Hct 42.9 (42.0-52.0) % MCV 102.4 H (80-100) fl MCH 35.1 H (26-34) pg MCHC 34.3 (32-36) g/dl RDW 15.3 H (11.5-14.5) % Plt Count 252 (150-375) k/mm3 MPV 8.6 (7.4-10.4) fl Immature Gran % (Auto) 0.2 (0-0.5) % Neut % (Auto) 58.4 (45.5-73.1) % Lymph % (Auto) 37.2 (18.3-44.2) % [place] % (Auto) 3.8 (2.6-8.5) % Eos % (Auto) 0.1 (0-4.4) % Baso % (Auto) 0.3 (0.2-1.2) % Lymph # (Auto) 3.27 H (0.9-3.2) K/mm3 [place] # (Auto) 0.3 (0.1-0.6) K/mm3 Eos # (Auto) 0.0 (0-0.3) K/mm3 Baso # (Auto) 0.0 (0.0-0.1) K/mm3 Abs Immat Gran (auto) 0.02 (0.00-0.031) K/mm3 Absolute Neuts (auto) 5.1 (1.3-6.7) K/mm3 Absolute Nucleated RBC 0.000 (0.0-0.012) K/mm3 Nucleated RBC % 0.0 (0.0-0.2) % ESR 8 (0-20) mm/hr PT 13.9 (11.1-14.7) Seconds INR 1.0 APTT 27.5 (22.3-36.8) Seconds Methemoglobin 0.3 (0-1.5) %THb Sodium 139 (137-145) mmol/L Potassium 3.5 (3.4-5.0) mmol/L Chloride 97 L (98-107) mmol/L Carbon Dioxide 14 L (22-30) mmol/L Anion Gap 28 H (4-12) mmol/L BUN 7 L (9-20) mg/dL Creatinine 0.44 L (0.7-1.3) mg/dL Estim Creat Clear Calc 100 ml/min Estimated GFR > 60 (59 - ) Glucose 114 H (65-110) mg/dL Hemoglobin A1c 5.9 H (<5.7) % Lactic Acid (0.7-2.0) mmol/L Uric Acid 6.8 (3.5-8.5) mg/dL Calcium 8.9 (8.4-10.2) mg/dL Phosphorus 5.5 H (2.5-4.5) mg/dL Magnesium 1.4 L (1.6-2.3) mg/dL Total Bilirubin 1.6 H (0.2-1.3) mg/dL AST 116 H (17-59) U/L ALT 30 (6-50) U/L Alkaline Phosphatase 122 (38-126) U/L C-Reactive Protein < 0.5 (<1.0) mg/dL Total Protein 8.0 (6.3-8.2) g/dL Albumin 4.9 (3.5-5.1) g/dL Beta-Hydroxybutyrate/Acetoacetate (0.02-0.27) mmol/L Urine Color (Yellow) Urine Appearance (Clear) Urine pH (5.0-9.0) Ur Specific [place] (1.001-1.035) Urine Protein (Negative) mg/dL Urine Glucose (UA) (Negative) mg/dL Urine Ketones (Negative) mg/dL Ur Blood (Man) (Negative) Urine Nitrate (Negative) Urine Bilirubin (Negative) Urine Urobilinogen (<2.0) mg/dL Leukocyte Esterase Rfl (Negative) MALKA/UL Urine RBC (0-2) /hpf Urine WBC (0-3) /hpf Ur Squamous Epith Cells (Few) /hpf Urine Bacteria /hpf Urine Casts 04/07/24 Range/Units 20:16 WBC (4.5-10.0) K/mm3 RBC (4.6-6.20) M/mm3 Hgb (14.0-18.0) g/dL Hct (42.0-52.0) % MCV (80-100) fl MCH (26-34) pg MCHC (32-36) g/dl RDW (11.5-14.5) % Plt Count (150-375) k/mm3 MPV (7.4-10.4) fl Immature Gran % (Auto) (0-0.5) % Neut % (Auto) (45.5-73.1) % Lymph % (Auto) (18.3-44.2) % [place] % (Auto) (2.6-8.5) % Eos % (Auto) (0-4.4) % Baso % (Auto) (0.2-1.2) % Lymph # (Auto) (0.9-3.2) K/mm3 [place] # (Auto) (0.1-0.6) K/mm3 Eos # (Auto) (0-0.3) K/mm3 Baso # (Auto) (0.0-0.1) K/mm3 Abs Immat Gran (auto) (0.00-0.031) K/mm3 Absolute Neuts (auto) (1.3-6.7) K/mm3 Absolute Nucleated RBC (0.0-0.012) K/mm3 Nucleated RBC % (0.0-0.2) % ESR (0-20) mm/hr PT (11.1-14.7) Seconds INR APTT (22.3-36.8) Seconds Methemoglobin (0-1.5) %THb Sodium (137-145) mmol/L Potassium (3.4-5.0) mmol/L Chloride (98-107) mmol/L Carbon Dioxide (22-30) mmol/L Anion Gap (4-12) mmol/L BUN (9-20) mg/dL Creatinine (0.7-1.3) mg/dL Estim Creat Clear Calc ml/min Estimated GFR (59 - ) Glucose (65-110) mg/dL Hemoglobin A1c (<5.7) % Lactic Acid 6.7 H* (0.7-2.0) mmol/L Uric Acid (3.5-8.5) mg/dL Calcium (8.4-10.2) mg/dL Phosphorus (2.5-4.5) mg/dL Magnesium (1.6-2.3) mg/dL Total Bilirubin (0.2-1.3) mg/dL AST (17-59) U/L ALT (6-50) U/L Alkaline Phosphatase (38-126) U/L C-Reactive Protein (<1.0) mg/dL Total Protein (6.3-8.2) g/dL Albumin (3.5-5.1) g/dL Beta-Hydroxybutyrate/Acetoacetate 3.59 H (0.02-0.27) mmol/L Urine Color Yellow (Yellow) Urine Appearance Clear (Clear) Urine pH 5.0 (5.0-9.0) Ur Specific [place] 1.010 (1.001-1.035) Urine Protein Trace (Negative) mg/dL Urine Glucose (UA) Negative (Negative) mg/dL Urine Ketones 2+ H (Negative) mg/dL Ur Blood (Man) Negative (Negative) Urine Nitrate Negative (Negative) Urine Bilirubin Negative (Negative) Urine Urobilinogen 0.2 (<2.0) mg/dL Leukocyte Esterase Rfl Negative (Negative) MALKA/UL Urine RBC 0-2 (0-2) /hpf Urine WBC 0-5 (0-3) /hpf Ur Squamous Epith Cells None seen (Few) /hpf Urine Bacteria None seen /hpf Urine Casts 3-5 <Sergio Hickman MD - Last Filed: 04/08/24 02:30> ABG Data ABG results: 04/07/24 20:14 Puncture Site Right brachial ABG pH 7.383 ABG pCO2 27.4 L ABG pO2 91.7 ABG PO2/FiO2 Ratio 4.37 ABG HCO3 16.0 L ABG O2 Saturation 97.0 ABG O2 Content 17.7 ABG Base Excess -7.6 A-a Gradient 25.2 Oxyhemoglobin 95.0 Carboxyhemoglobin 1.4 Reduced Hemoglobin 3.3 Total Hemoglobin 13.2 O2 Delivery Device Not Reportable FiO2 21 <Estela Perez PA-C - Last Filed: 04/07/24 22:38> 04/07/24 20:14 Puncture Site Right brachial ABG pH 7.383 ABG pCO2 27.4 L ABG pO2 91.7 ABG PO2/FiO2 Ratio 4.37 ABG HCO3 16.0 L ABG O2 Saturation 97.0 ABG O2 Content 17.7 ABG Base Excess -7.6 A-a Gradient 25.2 Oxyhemoglobin 95.0 Carboxyhemoglobin 1.4 Reduced Hemoglobin 3.3 Total Hemoglobin 13.2 O2 Delivery Device Not Reportable FiO2 21 <Sergio Hickman MD - Last Filed: 04/08/24 02:30> Imaging Data Radiologist's impression: ITS Impressions Knee X-Ray 04/07/24 18:01 IMPRESSION: Small suprapatellar joint effusion, without acute or subacute fracture, as detailed above. <Estela Perez PA-C - Last Filed: 04/07/24 22:38> Critical Care Time Critical Care Time Critical Care Time: Yes <Estela Perez PA-C - Last Filed: 04/07/24 22:38> Total Critical Care Time: 35 <Estela Perez PA-C - Last Filed: 04/07/24 22:38> Discharge Plan Discharge Clinical Impression: Alcoholic ketoacidosis, Knee pain with avascular necrosis determined by x-ray <Estela Perez PA-C - Last Filed: 04/07/24 22:38> Patient Disposition: Still a Patient <Estela Perez PA-C - Last Filed: 04/07/24 22:38> Condition: Serious <Estela Perez PA-C - Last Filed: 04/07/24 22:38>
[2024-04-07] MEDS: KETOROLAC 30 MG/ML VIAL (*BKC) IM (17:38)
[2024-04-07 17:48] LABS: Basophils Percent Auto 0.3 % (0.2-1.2); Eosinophils Percent Auto 0.1 % (0-4.4); Hematocrit 42.9 % (42.0-52.0); Hemoglobin 14.7 g/dL (14.0-18.0); Immature Granulocyte Absolute 0.02 K/mm3 (0.00-0.031); Immature Granulocyte Percent A 0.2 % (0-0.5); Lymphocytes Absolute Auto 3.27 K/mm3 (0.9-3.2); Lymphocytes Percent Auto 37.2 % (18.3-44.2); Mean Corpuscular HGB Conc 34.3 g/dl (32-36); Mean Corpuscular Hemoglobin 35.1 pg (26-34); Mean Corpuscular Volume 102.4 fl (80-100); Mean Platelet Volume 8.6 fl (7.4-10.4); Monocytes Absolute Auto 0.3 K/mm3 (0.1-0.6); Monocytes Percent Auto 3.8 % (2.6-8.5); Neutrophils Absolute Auto 5.1 K/mm3 (1.3-6.7); Neutrophils Percent Auto 58.4 % (45.5-73.1); Platelet Count Result 252 k/mm3 (150-375); Red Blood Count 4.19 M/mm3 (4.6-6.20); Red Cell Distribution Width 15.3 % (11.5-14.5); White Blood Count 8.8 K/mm3 (4.5-10.0)
[2024-04-07 17:58] LABS: Uric Acid 6.8 mg/dL (3.5-8.5)
[2024-04-07 18:00] LABS: Alanine Aminotransferase 30 U/L (6-50); Albumin Level 4.9 g/dL (3.5-5.1); Alkaline Phosphatase 122 U/L (38-126); Anion Gap 28 mmol/L (4-12); Aspartate Amino Transferase 116 U/L (17-59); Bilirubin,Total 1.6 mg/dL (0.2-1.3); Blood Urea Nitrogen 7 mg/dL (9-20); CRP < 0.5 mg/dL (<1.0); Calcium 8.9 mg/dL (8.4-10.2); Carbon Dioxide 14 mmol/L (22-30); Chloride 97 mmol/L (98-107); Estimated CRCL calculation 100 ml/min; Estimated Glomerular Filt Rate > 60; Glucose 114 mg/dL (65-110); Potassium 3.5 mmol/L (3.4-5.0); Sodium 139 mmol/L (137-145)
[2024-04-07 18:05] LABS: Partial Thromboplastin Time 27.5 Seconds (22.3-36.8); Prothrombin Time 13.9 Seconds (11.1-14.7)
[2024-04-07] MEDS: SODIUM CHLORIDE 0.9% IV 1,000 ML 999 ML IV CONT ×2 (18:25→21:42)
[2024-04-07 18:35] LABS: Erythrocyte Sedimentation Rate 8 mm/hr (0-20)
--- NOTE | 2024-04-07 19:19 | PC.NURSE ---
Assumed care of patient after receiving rep.ort from TROY Cummings & TROY Vera @ [id number].
[2024-04-07 19:31] LABS: Magnesium 1.4 mg/dL (1.6-2.3); Phosphorus 5.5 mg/dL (2.5-4.5)
[2024-04-07] MEDS: THIAMINE HCL 200 MG/2 ML VIAL 100 MG IV PUSH (20:05)
[2024-04-07] MEDS: MAGNESIUM SULF 1 GM/D5W 100 ML 1 GM/100 ML BAG IVPB (20:06)
[2024-04-07 20:24] LABS: Add Urine Microscopic? YES; Appearance Urine Clear (Clear); Bacteria Urine None Seen /hpf; Bilirubin Urine Negative (Negative); Blood Urine Negative (Negative); Color Urine Yellow (Yellow); Glucose Urine UA Negative (Negative); Ketones Urine 2+ mg/dL (Negative); Leukocyte Esterase Ur Negative LEU/UL (Negative); Nitrate Urine Negative (Negative); Protein Urine Trace mg/dL (Negative); RBC Urine 0-2 /hpf (0-2); Squamous Epithelial Cell Urine None Seen /hpf (Few); Urobilinogen Urine 0.2 mg/dL (<2.0); WBC Urine 0-5 /hpf (0-3)
[2024-04-07 20:32] LABS: Lactic Acid Reflex 6.7 mmol/L (0.7-2.0)
[2024-04-07 20:36] LABS: Beta-Hydroxybutyrate/Acetoacetate 3.59 mmol/L (0.02-0.27)
[2024-04-07 21:11] LABS: Alveolar/Arterial O2 Gradient 25.2 mmHg; Base Excess ABG -7.6 mEq/l (+/-2.0); Carboxyhemoglobin 1.4 % THb (0-2.0); Fractional Inspired Oxygen 21 %; Methemoglobin ABG 0.3 %THb (0-1.5); Oxygen Content ABG 17.7 %vol (16.0-22.0); PCO2 ABG 27.4 mmHg (35.0-45.0); PO2 ABG 91.7 mmHg (80.0-100.0); PO2 FiO2 Ratio Arterial Blood 4.37 %; Reduced Hemoglobin 3.3 %THb (0-5.0); Total Hemoglobin 13.2 g/dL (12.0-18.0); pH ABG 7.383 (7.350-7.450)
[2024-04-07 21:12] LABS: Modified Allen's Test Pass; Site Drawn RIGHT BRACHIAL
--- NOTE | 2024-04-07 21:19 | PM.IMHP ---
H&P: HPI History of Present Illness Date/Time: 04/07/24 21:19 Chief Complaint: Left knee pain, metabolic acidosis, electrolyte abnormality, bone infarct Narrative: This is a 63 year old male patient with past medical history of HTN presented to ER with ongoing Left Knee pain for months. Patient reports that he started drinking alcohol often to treat the pain. Patient reports he has been losing weight and not eating properly for quite some time. In ER labs showed normal WBC, normal inflammatory markers and normal uric acid. XR of left knee shows small suprapatellar joint effusion without fracture. Additional XR findings include ossification of insertion of quadriceps tendon, medial tibiofemoral joint space narrowing and multiple serpiginous foci of increased density in distal femur and proximal tibia consistent with bone infarction. Additional lab findings which were ultimately more concerning include anion gap of 28 with CO2 of 14 and magnesium of 1.4. Patient received 1 gram magnesium IV as well as 2 liters of Normal Saline and 100 mg IV thiamine. Potassium 3.5 and will be replaced on admit. We will place patient on D5 1/2 NS to try to reduce ketoacidosis. He may require additional IV fluid bolus after AM labs. Review of Systems Review of Systems: All systems reviewed & are unremarkable except as noted in HPI and below PMFSH Past Medical History Medical History Elevated transaminase level Basal cell carcinoma of head Weight loss GERD (gastroesophageal reflux disease) Family History Family History Mother Breast cancer Social History Social History Smoking packs per day: 1 Smoking cigarettes per day: 20.0 Years smoked: 49 Smoking pack-years: 49.00 Smoking status: Current every day smoker Tobacco type: cigarettes Alcohol intake: current Drinks per week: 14 Alcohol use details: Drinks sotero 2x daily Substance use: never Substance use type: does not use Do You Feel Safe in your Home?: Yes Lack of Transportation: YES Lack of Food: Never True Current Housing: I Have Housing Concerned About Future Housing: No Difficulty Paying Gas/Electric Bills: No Difficulty Paying for Meds: No Currently Unemployed: No Education: Decline to Answer Difficulty w/ Childcare or Family Care: No Living arrangements: with family Occupation/Education: occupation Additional occupation/education comments: [employer] Gender identity (if verbalized by the patient): Male Spiritual care concerns: No Agree to blood products: No Meds Home Medications and Allergies Home Medications ?Medication ?Instructions ?Recorded ?Confirmed ?Type sildenafil 50 mg tablet 50 mg PO DAILY PRN sexual activity 06/20/23 04/07/24 Rx #30 tabs amlodipine 10 mg tablet 10 mg PO DAILY #90 tabs 12/30/23 04/07/24 Rx Allergies Allergy/AdvReac Type Severity Reaction Status Date / Time No Known Allergies Allergy Verified 04/07/24 17:05 Vital Signs Vital Signs - 24 hr 04/07/24 17:08 Temperature 36.7 C Pulse Rate 130 H Respiratory Rate 16 Blood Pressure 161/113 H Pulse Oximetry 97 Oxygen Delivery Room Air Exam Narrative: GENERAL: Well-appearing, thin, and in no acute distress. HEAD: Normocephalic, atraumatic. EYES: EOMI. Scleral jaundice noted CHEST: Clear to auscultation. No respiratory distress. No wheezes rales or rhonchi HEART: Borderline tachycardic, regular rhythm. No murmur heard. Normal peripheral pulses. EXTREMITIES: Normal range of motion. Mild edema about the anterior/superior left knee. Normal DP pulse. Normal sensation. No erythema or warmth SKIN: Warm, dry, no rash. NEURO: No focal deficits. Alert and oriented x3. PSYCH: Normal mood and affect H&P: Results Labs Labs: Short CBC 04/07/24 Range/Units 17:41 WBC 8.8 (4.5-10.0) K/mm3 Hgb 14.7 (14.0-18.0) g/dL Hct 42.9 (42.0-52.0) % Plt Count 252 (150-375) k/mm3 BMP 04/07/24 17:41 Sodium 139 Potassium 3.5 Chloride 97 L Carbon Dioxide 14 L BUN 7 L Creatinine 0.44 L Glucose 114 H Calcium 8.9 Liver Function 04/07/24 Range/Units 17:41 Total Bilirubin 1.6 H (0.2-1.3) mg/dL AST 116 H (17-59) U/L ALT 30 (6-50) U/L Alkaline Phosphatase 122 (38-126) U/L Albumin 4.9 (3.5-5.1) g/dL Urine 04/07/24 Range/Units 20:16 Urine Color Yellow (Yellow) Urine Appearance Clear (Clear) Urine pH 5.0 (5.0-9.0) Ur Specific [place] 1.010 (1.001-1.035) Urine Protein Trace (Negative) mg/dL Urine Glucose (UA) Negative (Negative) mg/dL ABG ABG results: pH 7.383, pCO2 27.4, pO2 91.7, HCO3 16 Attestation: I personally reviewed and interpreted this ABG as follows: Interpretation: Metabolic acidosis with compensation Pulse Oximetry SpO2 results: 97-100% on room air Attestation: I personally reviewed and interpreted this pulse oximetry as follows: Interpretation: No need for supplemental oxygenation at this time Imaging Left knee x-ray: Radiologist's impression: HISTORY: left knee pain, swelling COMPARISON: None TECHNIQUE: 3 views of the left knee were performed FINDINGS: No acute or subacute fracture. Multiple serpiginous foci of increased density incidentally detected within the distal femur and proximal tibia, consistent with bone infarction. Medial tibiofemoral joint space narrowing is identified. Small suprapatellar joint effusion is identified. The infrapatellar joint space is clear. Calcified atherosclerotic disease. Ossification of the insertion of the quadriceps tendon is present. IMPRESSION: Small suprapatellar joint effusion, without acute or subacute fracture, as detailed above. Reviewed, dictated and finalized at location A. RGROUND MINING SECTION FOREMAN Assessment and Plan Assessment and plan (1) Alcoholic ketoacidosis: Code(s): E87.29 - Other acidosis Status: Acute Assessment and Plan: -S/P 2 liter IV fluid bolus -D5 1/2 NS at 100 mL/hr -Dietary consult ordered -Regular diet and ensure compact tidwm for now (2) Bone infarction of left leg: Code(s): M87.00 - Idiopathic aseptic necrosis of unspecified bone Status: Acute Assessment and Plan: -Longstanding left knee pain was cause of ER visit -XR left knee shows small suprapatellar joint effusion -Distal femur and proximal tibia findings concerning for bone infarction -ER spoke to Dr. Lind who advised outpatient clinic follow up rather than inpatient consult -Inadequate pain control in ER with IV ketorolac and oral [place] -Tylenol, [place], morphine for mild, moderate and severe pain respectively (3) Lactic acidosis: Code(s): E87.20 - Acidosis, unspecified Status: Acute Assessment and Plan: -Suspected type B lactic acidosis due to dehydration and ETOH regular use -6.7 after first liter bolus, 5.4 after second liter bolus -Ordered a third liter bolus and recheck with AM labs (4) Dehydration: Code(s): E86.0 - Dehydration Status: Acute Assessment and Plan: See above (5) Alcoholism: Code(s): F10.20 - Alcohol dependence, uncomplicated Status: Acute Assessment and Plan: -No history of withdrawal -CIWA ordered with PRN lorazepam and scheduled Librium -Thiamine ordered -Magnesium low in ER, replaced 1 gram IV in ER, recheck with AM labs -Metabolic/elevated anion gap acidosis (combo lactic and beta-hydroxybutyrate) due to ETOH overuse and poor nutrition -Weight loss cause suspected to be ETOH overuse and auto-catabolism due to poor nutrition (6) Essential hypertension: Code(s): I10 - Essential (primary) hypertension Status: Acute Assessment and Plan: -Resume home amlodipine (7) Tobacco abuse: Code(s): Z72.0 - Tobacco use Status: Acute Assessment and Plan: -Offered nicotine patch which patient declined right now but he will think about it and also think about nicotine gum if needed -Will place PRN orders (8) Weight loss: Code(s): R63.4 - Abnormal weight loss Status: Acute Assessment and Plan: -15-20 lbs over past 3 months -Suspect likely to ETOH use and decreased normal food/drink intake -Dietary consult with regular diet and TID supplements for now (9) GERD (gastroesophageal reflux disease): Code(s): K21.9 - Gastro-esophageal reflux disease without esophagitis Status: Acute Assessment and Plan: -Hx documented, will start PPI (10) Electrolyte abnormality: Code(s): E87.8 - Other disorders of electrolyte and fluid balance, not elsewhere classified Status: Acute Assessment and Plan: -Potassium low at 3.5, replaced orally on admit -Magnesium low at 1.4, replaced IV 1 gram in ER -Trend daily labs and replace as needed Quality VTE Prophylaxis VTE prophylaxis: mechanical ordered If No VTE Prophylaxis Answer both mechanical and pharmacologic: Reason no pharmacologic proph: medical contraindication active bleeding/bleeding risk (ETOH abuse) Hospitalist MIPS Advance Care Plan I have confirmed that the patient's Advanced Care Plan is present, code status is documented, or surrogate decision maker is listed in patient medical record.: Yes Medication Reconciliation I have utilized all available resources to obtain, update and review the patients current medications (includes all prescriptions, OTC, herbals, cannabis, and nutritional supplements).: Yes
[2024-04-07 21:34] VITALS: BP 161/92; PULSE 89; RESP 20; O2SAT 100
[2024-04-07] MEDS: HYDROcodone/acetaminophen (*CRX) 5-325 MG TABLET 1 TAB PO (21:42)
[2024-04-07 22:07] VITALS: BP 154/76; PULSE 97; RESP 17; O2SAT 100
[2024-04-07 22:20] VITALS: BP 168/88; PULSE 97; RESP 18; TEMP 37.1; O2SAT 96
--- NOTE | 2024-04-07 22:20 | PC.NURSE ---
This patient, Kody Franco, was admitted to IMU Room 207-01. Patient/family oriented to hospital policies and general routines including ID bracelet, bed and alarms, visiting hours, pain management, procedures, bathroom and other care routines, personal items, smoking policy, room service/diet, and visiting hours. Information on how to activate the Rapid Response Team has been discussed. Patient/Family are encouraged to report perceived risks to care and to ask questions if they do not understand what they are told or what they should do.
[2024-04-07 22:24] VITALS: BMI 16.3
[2024-04-07] MEDS: DEXTROSE 5%/0.45% SOD CHL 1,000 ML 100 ML IV CONT (22:56)
[2024-04-07] MEDS: POTASSIUM CHLORIDE 20 MEQ ER TABLET 40 MEQ PO (22:57)
[2024-04-07] MEDS: chlordiazePOXIDE (*CRX) 25 MG CAPSULE 50 MG PO (23:03)
[2024-04-07 23:10] LABS: Hemoglobin A1C 5.9 % (<5.7)
[2024-04-07 23:18] LABS: Reflex Lactic Acid Yes or No Add Lactic
[2024-04-07 23:57] LABS: Lactic Acid 5.4 mmol/L (0.7-2.0)
[2024-04-08] VITALS (16 sets, daily range): BP systolic 135–170; BP diastolic 84–94; PULSE 85–106; RESP 17–20; TEMP 36.7–37.1; O2SAT 94–100; BMI 16.7
[2024-04-08] MEDS: MORPHINE SULFATE (*CRX) 4 MG/ML INJ IV PUSH (00:14)
[2024-04-08 00:28] LABS: Glucose Point of Care 149 mg/dl (65-105)
[2024-04-08] MEDS: LACTATED RINGERS 1,000 ML 999 ML IV CONT (03:44)
[2024-04-08] MEDS: chlordiazePOXIDE (*CRX) 25 MG CAPSULE 50 MG PO ×4 (05:24→23:34)
[2024-04-08 05:29] LABS: Basophils Percent Auto 0.3 % (0.2-1.2); Eosinophils Absolute Auto 0.1 K/mm3 (0-0.3); Eosinophils Percent Auto 0.9 % (0-4.4); Hematocrit 34.4 % (42.0-52.0); Immature Granulocyte Absolute 0.01 K/mm3 (0.00-0.031); Immature Granulocyte Percent A 0.2 % (0-0.5); Lymphocytes Absolute Auto 2.73 K/mm3 (0.9-3.2); Lymphocytes Percent Auto 46.6 % (18.3-44.2); Mean Corpuscular HGB Conc 34.9 g/dl (32-36); Mean Corpuscular Hemoglobin 35.3 pg (26-34); Mean Corpuscular Volume 101.2 fl (80-100); Mean Platelet Volume 8.7 fl (7.4-10.4); Monocytes Absolute Auto 0.3 K/mm3 (0.1-0.6); Monocytes Percent Auto 4.8 % (2.6-8.5); Neutrophils Absolute Auto 2.8 K/mm3 (1.3-6.7); Neutrophils Percent Auto 47.2 % (45.5-73.1); Platelet Count Result 203 k/mm3 (150-375); Red Cell Distribution Width 14.9 % (11.5-14.5); White Blood Count 5.9 K/mm3 (4.5-10.0)
[2024-04-08 05:39] LABS: Alanine Aminotransferase 25 U/L (6-50); Albumin Level 3.8 g/dL (3.5-5.1); Alkaline Phosphatase 97 U/L (38-126); Anion Gap 12 mmol/L (4-12); Aspartate Amino Transferase 86 U/L (17-59); Bilirubin,Total 2.1 mg/dL (0.2-1.3); Blood Urea Nitrogen 2 mg/dL (9-20); Calcium 7.9 mg/dL (8.4-10.2); Carbon Dioxide 24 mmol/L (22-30); Chloride 98 mmol/L (98-107); Estimated CRCL calculation 131 ml/min; Estimated Glomerular Filt Rate > 60; Glucose 97 mg/dL (65-110); Magnesium 1.2 mg/dL (1.6-2.3); Potassium 3.4 mmol/L (3.4-5.0); Sodium 134 mmol/L (137-145)
[2024-04-08 05:44] LABS: Beta-Hydroxybutyrate/Acetoacetate 2.79 mmol/L (0.02-0.27)
[2024-04-08 06:13] LABS: Iron 224 ug/dL (49-181)
[2024-04-08 06:17] LABS: Procalcitonin 0.1 ng/mL
[2024-04-08 06:23] LABS: Percent Iron Saturation 99 % (20-50)
[2024-04-08 06:48] LABS: Lactic Acid Reflex 1.4 mmol/L (0.7-2.0)
[2024-04-08] MEDS: POTASSIUM CHLORIDE 20 MEQ ER TABLET 60 MEQ PO (06:49)
[2024-04-08] MEDS: MAGNESIUM SULF 4 GM/WATER100ML 4 GM/100 ML BAG IVPB ×2 (06:57→10:43)
[2024-04-08] MEDS: POTASSIUM CHLORIDE INJ 40 MEQ in SODIUM CHLORIDE 0.9% IV 500 ML 130 MEQ IVPB (07:13)
[2024-04-08 07:30] LABS: Folic Acid 4.7 ng/mL (2.76->20)
[2024-04-08 08:05] LABS: Glucose Point of Care 116 mg/dl (65-105)
[2024-04-08] MEDS: HYDROcodone/acetaminophen (*CRX) 7.5-325 MG TABLET 1 TAB PO ×2 (09:05→21:19)
[2024-04-08] MEDS: amLODIPine BESYLATE 10 MG TABLET PO (09:06)
[2024-04-08] MEDS: THIAMINE HCL 200 MG/2 ML VIAL 100 MG IV PUSH (09:06)
[2024-04-08] MEDS: DEXTROSE 5%/0.45% SOD CHL 1,000 ML 100 ML IV CONT ×2 (11:38→23:33)
--- NOTE | 2024-04-08 13:56 | P.PNIM_ITS ---
Progress Note: A&P Assessment and Plan (1) Alcoholic ketoacidosis: Code(s): E87.29 - Other acidosis Status: Acute Assessment and Plan: -S/P 2 liter IV fluid bolus - Encourage oral intake, -Regular diet and ensure compact tidwm for now (2) Bone infarction of left leg: Code(s): M87.00 - Idiopathic aseptic necrosis of unspecified bone Status: Acute Assessment and Plan: -Longstanding left knee pain was cause of ER visit -XR left knee shows small suprapatellar joint effusion -Distal femur and proximal tibia findings concerning for bone infarction -ER spoke to Dr. Lind who advised outpatient clinic follow up rather than inpatient consult -Inadequate pain control in ER with IV ketorolac and oral [place] -Tylenol, [place], morphine for mild, moderate and severe pain respectively (3) Lactic acidosis: Code(s): E87.20 - Acidosis, unspecified Status: Acute Assessment and Plan: resolved Lactic 1.4 today (4) Dehydration: Code(s): E86.0 - Dehydration Status: Acute Assessment and Plan: See above (5) Alcoholism: Code(s): F10.20 - Alcohol dependence, uncomplicated Status: Acute Assessment and Plan: -No history of withdrawal -CIWA ordered with PRN lorazepam and scheduled Librium -Thiamine ordered -Magnesium low in ER, replaced 1 gram IV in ER, recheck with AM labs -Metabolic/elevated anion gap acidosis (combo lactic and beta-hydroxybutyrate) due to ETOH overuse and poor nutrition -Weight loss cause suspected to be ETOH overuse and auto-catabolism due to poor nutrition (6) Essential hypertension: Code(s): I10 - Essential (primary) hypertension Status: Acute Assessment and Plan: -Resume home amlodipine (7) Tobacco abuse: Code(s): Z72.0 - Tobacco use Status: Acute Assessment and Plan: -Offered nicotine patch which patient declined right now but he will think about it and also think about nicotine gum if needed -Will place PRN orders (8) Weight loss: Code(s): R63.4 - Abnormal weight loss Status: Acute Assessment and Plan: -15-20 lbs over past 3 months -Suspect likely to ETOH use and decreased normal food/drink intake -Dietary consult with regular diet and TID supplements for now (9) GERD (gastroesophageal reflux disease): Code(s): K21.9 - Gastro-esophageal reflux disease without esophagitis Status: Acute Assessment and Plan: -Hx documented, will start PPI (10) Electrolyte abnormality: Code(s): E87.8 - Other disorders of electrolyte and fluid balance, not elsewhere classified Status: Acute Assessment and Plan: -Potassium low at 3.5, replaced orally on admit Mg 1.2 today, K 3.4 replaced monitor Plan DVT prophylaxis on Sq Lovenox Subjective Date/time seen: 04/08/24 13:56 Interval history: comfortable at bedside Review of Systems Review of Systems: All systems reviewed & are unremarkable except as noted in HPI and below Exam Narrative: GENERAL: Well-appearing, thin, and in no acute distress. HEAD: Normocephalic, atraumatic. EYES: EOMI. Scleral jaundice noted CHEST: Clear to auscultation. No respiratory distress. No wheezes rales or rhonchi HEART: Borderline tachycardic, regular rhythm. No murmur heard. Normal peripheral pulses. EXTREMITIES: Normal range of motion. Mild edema about the anterior/superior left knee. Normal DP pulse. Normal sensation. No erythema or warmth SKIN: Warm, dry, no rash. NEURO: No focal deficits. Alert and oriented x3. PSYCH: Normal mood and affect Objective Data Vital Signs Vital Signs: Vital Signs - 24 hr 04/07/24 17:08 04/07/24 21:34 04/07/24 22:07 Temperature 98.1 F Pulse Rate 130 H 89 97 Respiratory Rate 16 20 17 Blood Pressure 161/113 H 161/92 H 154/76 H Pulse Oximetry 97 100 100 Oxygen Delivery Room Air 04/07/24 22:20 04/07/24 22:20 04/08/24 00:00 Temperature 98.7 F 98.2 F Pulse Rate 97 90 Respiratory Rate 18 17 Blood Pressure 168/88 H 149/84 H Pulse Oximetry 96 94 Oxygen Delivery Room Air 04/08/24 00:00 04/08/24 00:00 04/08/24 02:00 Temperature Pulse Rate 106 H 88 Respiratory Rate Blood Pressure Pulse Oximetry Oxygen Delivery Room Air 04/08/24 04:00 04/08/24 04:00 04/08/24 04:30 Temperature 98.7 F Pulse Rate 92 99 Respiratory Rate 18 Blood Pressure 170/92 H Pulse Oximetry 98 Oxygen Delivery Room Air 04/08/24 06:00 04/08/24 07:49 04/08/24 08:00 Temperature 98.1 F Pulse Rate 88 103 H 104 H Respiratory Rate 18 Blood Pressure 151/94 H Pulse Oximetry 98 Oxygen Delivery 04/08/24 10:00 04/08/24 11:51 04/08/24 12:00 Temperature 98.1 F Pulse Rate 85 98 94 Respiratory Rate 18 Blood Pressure 144/88 H Pulse Oximetry 100 Oxygen Delivery 04/08/24 13:53 Temperature Pulse Rate 86 Respiratory Rate Blood Pressure Pulse Oximetry Oxygen Delivery Intake/Output Intake/Output: Intake & Output 04/05/24 04/06/24 04/07/24 04/08/24 23:59 23:59 23:59 23:59 Intake Total 2100 3390 Output Total 650 2200 Balance 1450 1190 Meds/Results Medications: Active Medications Generic Name Dose Route Start Last Admin Trade Name Freq PRN Reason Stop Dose Admin Acetaminophen 650 mg 04/07/24 22:54 Acetaminophen 325 Mg Tablet PO Q4H PRN Mild Pain (1-3) or Fever Hydrocodone Bitart/Acetaminophen 1 tab 04/07/24 22:54 04/08/24 09:05 Hydrocodone/Acetaminophen (*Crx) 7.5-325 Mg Tablet PO 1 tab Q4H PRN Administration Pain Rated 4-6 Amlodipine Besylate 10 mg 04/08/24 09:00 04/08/24 09:06 Amlodipine Besylate 10 Mg Tablet PO 10 mg DAILY NADIRA Administration Chlordiazepoxide HCl 50 mg 04/08/24 00:00 04/08/24 11:37 Chlordiazepoxide (*Crx) 25 Mg Capsule PO 50 mg Q6HR NADIRA Administration Haloperidol Lactate 2 mg 04/07/24 22:25 Haloperidol Lactate 5 Mg/Ml Vial IV PUSH Q2H PRN Delirium Dextrose/Sodium Chloride 1,000 mls @ 100 mls/hr 04/07/24 22:25 04/08/24 11:38 Dextrose 5% Sodium Chloride 0.45% IV CONT 100 mls/hr .Q10H NADIRA Administration Lorazepam 2 mg 04/07/24 22:25 Lorazepam Inj (*Crx) 2 Mg/Ml Vial IV PUSH Q2H PRN CIWA > 15 Morphine Sulfate 4 mg 04/07/24 22:54 04/08/24 00:14 Morphine Sulfate (*Crx) 4 Mg/Ml Inj IV PUSH 4 mg Q4H PRN Administration Pain Rated 7-10 Nicotine 1 patch 04/08/24 02:56 Nicotine (*Pbkc) 14 Mg Patch TRANSDERM DAILY PRN nicotine craving Nicotine Polacrilex 2 mg 04/08/24 02:56 Nicotine (*Pbkc) 2 Mg Gum PO PRN PRN Nicotine Cravings Ondansetron HCl 4 mg 04/07/24 22:25 Ondansetron Inj 4 Mg/2 Ml Vial IV PUSH Q6H PRN Nausea And Vomiting Thiamine HCl 100 mg 04/08/24 09:00 04/08/24 09:06 Thiamine Hcl 200 Mg/2 Ml Vial IV PUSH 100 mg DAILY NADIRA Administration Radiology Results: ITS Impressions Knee X-Ray 04/07/24 18:01 IMPRESSION: Small suprapatellar joint effusion, without acute or subacute fracture, as detailed above. Chest X-Ray 04/08/24 08:43 IMPRESSION: 1. Emphysema. Labs Labs: Laboratory Results - last 24 hr 04/07/24 04/07/24 04/07/24 17:40 17:41 20:14 WBC 8.8 RBC 4.19 L Hgb 14.7 Hct 42.9 MCV 102.4 H MCH 35.1 H MCHC 34.3 RDW 15.3 H Plt Count 252 MPV 8.6 Immature Gran % (Auto) 0.2 Neut % (Auto) 58.4 Lymph % (Auto) 37.2 [place] % (Auto) 3.8 Eos % (Auto) 0.1 Baso % (Auto) 0.3 Lymph # (Auto) 3.27 H [place] # (Auto) 0.3 Eos # (Auto) 0.0 Baso # (Auto) 0.0 Abs Immat Gran (auto) 0.02 Absolute Neuts (auto) 5.1 Absolute Nucleated RBC 0.000 Nucleated RBC % 0.0 ESR 8 PT 13.9 INR 1.0 APTT 27.5 Puncture Site Right brachial ABG pH 7.383 ABG pCO2 27.4 L ABG pO2 91.7 ABG PO2/FiO2 Ratio 4.37 ABG HCO3 16.0 L ABG O2 Saturation 97.0 ABG O2 Content 17.7 ABG Base Excess -7.6 A-a Gradient 25.2 Oxyhemoglobin 95.0 Carboxyhemoglobin 1.4 Methemoglobin 0.3 Reduced Hemoglobin 3.3 Total Hemoglobin 13.2 O2 Delivery Device Not Reportable O2 Liters/Min Not Reportable FiO2 21 Sodium 139 Potassium 3.5 Chloride 97 L Carbon Dioxide 14 L Anion Gap 28 H BUN 7 L Creatinine 0.44 L Estim Creat Clear Calc 100 Estimated GFR > 60 Glucose 114 H POC Capillary Glucose Hemoglobin A1c 5.9 H Lactic Acid Uric Acid 6.8 Calcium 8.9 Phosphorus 5.5 H Magnesium 1.4 L Iron TIBC % Saturation Ferritin Total Bilirubin 1.6 H AST 116 H ALT 30 Alkaline Phosphatase 122 C-Reactive Protein < 0.5 Total Protein 8.0 Albumin 4.9 Vitamin B12 Folate Beta-Hydroxybutyrate/Acetoacetate Procalcitonin Urine Color Urine Appearance Urine pH Ur Specific [place] Urine Protein Urine Glucose (UA) Urine Ketones Ur Blood (Man) Urine Nitrate Urine Bilirubin Urine Urobilinogen Leukocyte Esterase Rfl Urine RBC Urine WBC Ur Squamous Epith Cells Urine Bacteria Urine Casts 04/07/24 04/07/24 04/08/24 20:16 23:39 00:24 WBC RBC Hgb Hct MCV MCH MCHC RDW Plt Count MPV Immature Gran % (Auto) Neut % (Auto) Lymph % (Auto) [place] % (Auto) Eos % (Auto) Baso % (Auto) Lymph # (Auto) [place] # (Auto) Eos # (Auto) Baso # (Auto) Abs Immat Gran (auto) Absolute Neuts (auto) Absolute Nucleated RBC Nucleated RBC % ESR PT INR APTT Puncture Site ABG pH ABG pCO2 ABG pO2 ABG PO2/FiO2 Ratio ABG HCO3 ABG O2 Saturation ABG O2 Content ABG Base Excess A-a Gradient Oxyhemoglobin Carboxyhemoglobin Methemoglobin Reduced Hemoglobin Total Hemoglobin O2 Delivery Device O2 Liters/Min FiO2 Sodium Potassium Chloride Carbon Dioxide Anion Gap BUN Creatinine Estim Creat Clear Calc Estimated GFR Glucose POC Capillary Glucose 149 H Hemoglobin A1c Lactic Acid 6.7 H* 5.4 H* Uric Acid Calcium Phosphorus Magnesium Iron TIBC % Saturation Ferritin Total Bilirubin AST ALT Alkaline Phosphatase C-Reactive Protein Total Protein Albumin Vitamin B12 Folate Beta-Hydroxybutyrate/Acetoacetate 3.59 H Procalcitonin Urine Color Yellow Urine Appearance Clear Urine pH 5.0 Ur Specific [place] 1.010 Urine Protein Trace Urine Glucose (UA) Negative Urine Ketones 2+ H Ur Blood (Man) Negative Urine Nitrate Negative Urine Bilirubin Negative Urine Urobilinogen 0.2 Leukocyte Esterase Rfl Negative Urine RBC 0-2 Urine WBC 0-5 Ur Squamous Epith Cells None seen Urine Bacteria None seen Urine Casts 3-5 04/08/24 04/08/24 04/08/24 04:53 05:06 07:56 WBC 5.9 RBC 3.40 L Hgb 12.0 L Hct 34.4 L MCV 101.2 H MCH 35.3 H MCHC 34.9 RDW 14.9 H Plt Count 203 MPV 8.7 Immature Gran % (Auto) 0.2 Neut % (Auto) 47.2 Lymph % (Auto) 46.6 H [place] % (Auto) 4.8 Eos % (Auto) 0.9 Baso % (Auto) 0.3 Lymph # (Auto) 2.73 [place] # (Auto) 0.3 Eos # (Auto) 0.1 Baso # (Auto) 0.0 Abs Immat Gran (auto) 0.01 Absolute Neuts (auto) 2.8 Absolute Nucleated RBC 0.000 Nucleated RBC % 0.0 ESR PT INR APTT Puncture Site ABG pH ABG pCO2 ABG pO2 ABG PO2/FiO2 Ratio ABG HCO3 ABG O2 Saturation ABG O2 Content ABG Base Excess A-a Gradient Oxyhemoglobin Carboxyhemoglobin Methemoglobin Reduced Hemoglobin Total Hemoglobin O2 Delivery Device O2 Liters/Min FiO2 Sodium 134 L Potassium 3.4 Chloride 98 Carbon Dioxide 24 Anion Gap 12 BUN 2 L D Creatinine 0.31 L Estim Creat Clear Calc 131 Estimated GFR > 60 Glucose 97 POC Capillary Glucose 116 H Hemoglobin A1c Lactic Acid 1.4 Uric Acid Calcium 7.9 L Phosphorus Magnesium 1.2 L Iron 224 H TIBC 226 L % Saturation 99 H Ferritin 371.00 H Total Bilirubin 2.1 H AST 86 H ALT 25 Alkaline Phosphatase 97 C-Reactive Protein Total Protein 6.0 L Albumin 3.8 Vitamin B12 655.0 Folate 4.7 Beta-Hydroxybutyrate/Acetoacetate 2.79 H Procalcitonin 0.1 Urine Color Urine Appearance Urine pH Ur Specific [place] Urine Protein Urine Glucose (UA) Urine Ketones Ur Blood (Man) Urine Nitrate Urine Bilirubin Urine Urobilinogen Leukocyte Esterase Rfl Urine RBC Urine WBC Ur Squamous Epith Cells Urine Bacteria Urine Casts Quality VTE Prophylaxis VTE prophylaxis: mechanical ordered
[2024-04-08 15:17] LABS: Glucose Point of Care 219 mg/dl (65-105)
[2024-04-08 15:57] LABS: Glucose Point of Care 303 mg/dl (65-105)
[2024-04-08 17:10] LABS: Magnesium 2.7 mg/dL (1.6-2.3); Potassium 4.6 mmol/L (3.4-5.0)
[2024-04-08] MEDS: INSULIN ASPART (*BKC) 100 UNITS/ML SUB-Q ×2 (17:30→21:20)
[2024-04-08 20:11] LABS: Glucose Point of Care 267 mg/dl (65-105)
[2024-04-08 23:59] LABS: Glucose Point of Care 247 mg/dl (65-105)
[2024-04-09] VITALS (10 sets, daily range): BP systolic 119–138; BP diastolic 75–84; PULSE 82–103; RESP 15–20; TEMP 36.6–37.2; O2SAT 99–100
[2024-04-09] MEDS: MORPHINE SULFATE (*CRX) 4 MG/ML INJ IV PUSH (03:20)
[2024-04-09 05:06] LABS: Basophils Percent Auto 0.4 % (0.2-1.2); Eosinophils Absolute Auto 0.1 K/mm3 (0-0.3); Eosinophils Percent Auto 1.5 % (0-4.4); Hematocrit 33.3 % (42.0-52.0); Hemoglobin 11.3 g/dL (14.0-18.0); Immature Granulocyte Absolute 0.02 K/mm3 (0.00-0.031); Immature Granulocyte Percent A 0.4 % (0-0.5); Lymphocytes Absolute Auto 2.14 K/mm3 (0.9-3.2); Lymphocytes Percent Auto 40.1 % (18.3-44.2); Mean Corpuscular HGB Conc 33.9 g/dl (32-36); Mean Corpuscular Hemoglobin 35.1 pg (26-34); Mean Corpuscular Volume 103.4 fl (80-100); Mean Platelet Volume 9.5 fl (7.4-10.4); Monocytes Absolute Auto 0.2 K/mm3 (0.1-0.6); Monocytes Percent Auto 4.5 % (2.6-8.5); Neutrophils Absolute Auto 2.8 K/mm3 (1.3-6.7); Neutrophils Percent Auto 53.1 % (45.5-73.1); Nucleated Red Blood Cells Perc 0.4 % (0.0-0.2); Platelet Count Result 187 k/mm3 (150-375); Red Blood Count 3.22 M/mm3 (4.6-6.20); Red Cell Distribution Width 14.4 % (11.5-14.5); White Blood Count 5.3 K/mm3 (4.5-10.0)
[2024-04-09] MEDS: chlordiazePOXIDE (*CRX) 25 MG CAPSULE 50 MG PO ×2 (05:12→13:14)
[2024-04-09 05:23] LABS: Alanine Aminotransferase 18 U/L (6-50); Albumin Level 2.9 g/dL (3.5-5.1); Alkaline Phosphatase 85 U/L (38-126); Anion Gap 5 mmol/L (4-12); Aspartate Amino Transferase 49 U/L (17-59); Bilirubin,Total 1.1 mg/dL (0.2-1.3); Blood Urea Nitrogen 4 mg/dL (9-20); Calcium 8.1 mg/dL (8.4-10.2); Carbon Dioxide 26 mmol/L (22-30); Chloride 101 mmol/L (98-107); Estimated CRCL calculation 125 ml/min; Estimated Glomerular Filt Rate > 60; Glucose 221 mg/dL (65-110); Magnesium 1.9 mg/dL (1.6-2.3); Potassium 3.3 mmol/L (3.4-5.0); Sodium 132 mmol/L (137-145)
--- NOTE | 2024-04-09 06:57 | P.CDI_ITS ---
CDI Query Clarification Request BMI: 17.7 Nutritional Diagnostic Statement: Please refer to the comprehensive nutrition assessment for further information. If you agree with diagnosis of Severe malnutrition related to chronic poor intake from alcohol abuse as evidenced by 16% weight loss/1 year; intakes <75% needs >1 month; severe muscle wasting and fat loss. Please specify severity if known: * Mild * Moderate * Severe * Other/Unknown <Amy Robison RN - Last Filed: 04/09/24 06:58> Clarified Diagnosis Clarified Diagnosis: * Severe <Lori Stanley MD - Last Filed: 04/09/24 07:15>
[2024-04-09 07:59] LABS: Glucose Point of Care 204 mg/dl (65-105)
[2024-04-09] MEDS: MAGNESIUM SULF 1 GM/D5W 100 ML 1 GM/100 ML BAG IVPB (09:50)
[2024-04-09] MEDS: DEXTROSE 5%/0.45% SOD CHL 1,000 ML 100 ML IV CONT (09:51)
[2024-04-09] MEDS: ENOXAPARIN 40 MG/0.4 ML SYRINGE SUB-Q (09:53)
[2024-04-09] MEDS: POTASSIUM CHLORIDE 20 MEQ PACKET (FOR LIQUID) 40 MEQ PO (09:54)
[2024-04-09] MEDS: THIAMINE HCL 200 MG/2 ML VIAL 100 MG IV PUSH (09:55)
[2024-04-09] MEDS: amLODIPine BESYLATE 10 MG TABLET PO (09:56)
[2024-04-09] MEDS: INSULIN ASPART (*BKC) 100 UNITS/ML SUB-Q (09:58)
[2024-04-09 11:51] LABS: Glucose Point of Care 220 mg/dl (65-105)
--- NOTE | 2024-04-09 13:52 | PM.DS ---
DS: Admitting Diagnosis Discharge Date 04/09/24 Admitting Diagnosis lEFT KNEE PAIN DS: Discharge Diagnosis Discharge Diagnosis (1) Alcoholism: Code(s): F10.20 - Alcohol dependence, uncomplicated Status: Acute (2) Bone infarction of left leg: Code(s): M87.00 - Idiopathic aseptic necrosis of unspecified bone Status: Acute DS: Summary Hospital Course Hospital Course: This is a 63 year old male patient with past medical history of HTN presented to ER with ongoing Left Knee pain for months. Patient reports that he started drinking alcohol often to treat the pain. Patient reports he has been losing weight and not eating properly for quite some time. In ER labs showed normal WBC, normal inflammatory markers and normal uric acid. XR of left knee shows small suprapatellar joint effusion without fracture. Additional XR findings include ossification of insertion of quadriceps tendon, medial tibiofemoral joint space narrowing and multiple serpiginous foci of increased density in distal femur and proximal tibia consistent with bone infarction. Additional lab findings which were ultimately more concerning include anion gap of 28 with CO2 of 14 and magnesium of 1.4. Patient received 1 gram magnesium IV as well as 2 liters of Normal Saline and 100 mg IV thiamine. Potassium 3.5 and will be replaced on admit. We will place patient on D5 1/2 NS to try to reduce ketoacidosis. He may require additional IV fluid bolus after AM labs. Ortho was consulted Dr Lind noted he will follow patient outpatient. Lactic acidosis is from dehydration adn resolved with IVF. Patient noted that last alcohol consumption was on Friday and he was started on Thiamine. encouraged to wean off alcohol consumption. Dietitian was consulted and noted that patient meets criteria for severe malnutrition. D Hypokalemia and hypomagnesemia were replaced and normalised. Patient was discarged on 5 days worth of supplementation. Patient was encouraged to avoid alcohol and eat adequately. noted he lives at home wiht family. F/u with PCP in 3-5 days F/u with ortho as instructed. Time Spent with Patient Time attestation: Total time spent providing and/or coordinating discharge services: DS: Data Data Completed and Pending Labs on day of discharge: Labs from last 24 hours 04/09/24 04/09/24 04/09/24 11:47 07:41 04:14 WBC 5.3 RBC 3.22 L Hgb 11.3 L Hct 33.3 L MCV 103.4 H MCH 35.1 H MCHC 33.9 RDW 14.4 Plt Count 187 MPV 9.5 Immature Gran % (Auto) 0.4 Neut % (Auto) 53.1 Lymph % (Auto) 40.1 [place] % (Auto) 4.5 Eos % (Auto) 1.5 Baso % (Auto) 0.4 Lymph # (Auto) 2.14 [place] # (Auto) 0.2 Eos # (Auto) 0.1 Baso # (Auto) 0.0 Abs Immat Gran (auto) 0.02 Absolute Neuts (auto) 2.8 Absolute Nucleated RBC 0.020 H Nucleated RBC % 0.4 H Sodium 132 L Potassium 3.3 L Chloride 101 Carbon Dioxide 26 Anion Gap 5 BUN 4 L Creatinine 0.35 L Estim Creat Clear Calc 125 Estimated GFR > 60 Glucose 221 H POC Capillary Glucose 220 H 204 H Calcium 8.1 L Magnesium 1.9 Total Bilirubin 1.1 AST 49 ALT 18 Alkaline Phosphatase 85 Total Protein 5.0 L Albumin 2.9 L 04/08/24 04/08/24 04/08/24 23:55 20:07 16:52 WBC RBC Hgb Hct MCV MCH MCHC RDW Plt Count MPV Immature Gran % (Auto) Neut % (Auto) Lymph % (Auto) [place] % (Auto) Eos % (Auto) Baso % (Auto) Lymph # (Auto) [place] # (Auto) Eos # (Auto) Baso # (Auto) Abs Immat Gran (auto) Absolute Neuts (auto) Absolute Nucleated RBC Nucleated RBC % Sodium Potassium 4.6 Chloride Carbon Dioxide Anion Gap BUN Creatinine Estim Creat Clear Calc Estimated GFR Glucose POC Capillary Glucose 247 H 267 H Calcium Magnesium 2.7 H Total Bilirubin AST ALT Alkaline Phosphatase Total Protein Albumin 04/08/24 04/08/24 15:54 12:02 WBC RBC Hgb Hct MCV MCH MCHC RDW Plt Count MPV Immature Gran % (Auto) Neut % (Auto) Lymph % (Auto) [place] % (Auto) Eos % (Auto) Baso % (Auto) Lymph # (Auto) [place] # (Auto) Eos # (Auto) Baso # (Auto) Abs Immat Gran (auto) Absolute Neuts (auto) Absolute Nucleated RBC Nucleated RBC % Sodium Potassium Chloride Carbon Dioxide Anion Gap BUN Creatinine Estim Creat Clear Calc Estimated GFR Glucose POC Capillary Glucose 303 H 219 H Calcium Magnesium Total Bilirubin AST ALT Alkaline Phosphatase Total Protein Albumin Preliminary micro results at discharge 04/08/24 05:19 Blood Culture - Preliminary Blood 04/08/24 05:07 Blood Culture - Preliminary Blood Discharge Plan Discharge Attending physician on discharge: Lori Stanley Discharging Clinician: Lori Stanley Anticipated Discharge Date/Time: 04/09/24 13:45 Patient Disposition: Home, Self-Care Activity: as tolerated Diet: as tolerated Discharge Instructions: F/u with Dr Lind outpatient for bone infarction follow up Patient Instructions: Antibiotic Form Patient Language: Serbian Stand Alone Forms: General Discharge Information Follow-up/Referrals: Oniel Rendon, DO [Primary Care Provider] - (F/u with PCP in 3-5 days ) Discharge Medications: New oxycodone 5 mg tablet 5 mg PO Q6H PRN (Reason: pain) 5 Days Qty: 5 0RF thiamine HCl (vitamin B1) 100 mg capsule 100 mg PO DAILY Qty: 30 0RF magnesium chloride 64 mg tablet,delayed release (DR/EC) 64 mg PO DAILY 7 Days Qty: 7 5RF potassium chloride [Klor-Con M20] 20 mEq tablet,ER particles/crystals 20 meq PO DAILY Qty: 7 0RF Continued sildenafil 50 mg tablet 50 mg PO DAILY PRN (Reason: sexual activity) Qty: 30 0RF Rx Instructions: administer 30 minutes to 4 hours before activity amlodipine 10 mg tablet 10 mg PO DAILY Qty: 90 1RF Date of admission: 04/09/24 09:53 Primary Care Provider: Oneil Rendon Admitting Provider: Alex Sheridan Attending physician on admission: Alex Sheridan Condition: Serious
[2024-04-09] MEDS: HYDROcodone/acetaminophen (*CRX) 7.5-325 MG TABLET 1 TAB PO (15:13)
== END 2024-04-09 16:00 | disposition home or self-care (01) | DRG 640 ==
LOC: ANHED 17:52 → ANHIMU 21:56
PROVIDERS: Nurse Practitioner; Admitting Provider Hospitalist; Emergency Provider Physician Assistant; PCP Internal Medicine; Visit Provider Internal Medicine
DX: E87.29 Other acidosis (principal); E43 Unspecified severe protein-calorie malnutrition; M87.062 Idiopathic aseptic necrosis of left tibia; Z68.1 Body mass index [BMI] 19.9 or less, adult; M87.052 Idiopathic aseptic necrosis of left femur; E87.21 Acute metabolic acidosis; E86.0 Dehydration; F10.20 Alcohol dependence, uncomplicated; K21.9 Gastro-esophageal reflux disease without esophagitis; I10 Essential (primary) hypertension; R63.4 Abnormal weight loss; E87.8 Other disorders of electrolyte and fluid balance, not elsewhere classified; F17.210 Nicotine dependence, cigarettes, uncomplicated; Z85.828 Personal history of other malignant neoplasm of skin
CPT/HCPCS: 36415; 36600; 71046; 73564; 80053; 81001; 82010; 82375; 82607; 82728; 82746; 82805; 82948; 83036; 83050; 83540; 83550; 83605; 83735; 84100; 84132; 84145; 84550; 85018; 85025; 85610; 85652; 85730; 86140; 87040; 96361; 96365; 96372; 96375; 96376; 97162; 99285; A9270; G0378; J1650; J1815; J1885; J2270; J3411; J3475; J3480; J7030; J7040; J7120

== ENCOUNTER 2024-08-07 10:25 | Outpatient (CLI) | payer MEDICAID, SELFPAY ==
--- NOTE | ~2024-08-07 | MR_ITS ---
MRI of the left knee Clinical history: Pain Technique: Coronal proton density and proton density-weighted images, sagittal proton-density and T2 fat-sat images, and axial proton-density fat-saturated images were acquired. Findings: Anterior and posterior cruciate ligaments are intact. Medial collateral ligament and the la teral collateral ligament complex are intact. Popliteus tendon is intact. Questionable minimal undersurface fraying of the posterior horn of the medial meniscus without defini te linear tear. No lateral meniscal tear seen. There is extensive high-grade chondromalacia over the medial patellar facet extending to the patellar apex. There is mild chondromalacia the femoral trochlea. There is focal high-grade chondral lesion a t the inner aspect of the medial femoral condyle. There are extensive bone infarcts of the proximal t ibia and distal femur. Extensor mechanism is intact. Small joint effusion present. No Rivas's cyst. Impression: Extensive bone infarcts. Correlate clinically for potential contributing underlying etiologies. Chondromalacia patella with additional focal high-grade chondral lesion of the inner aspect of the me dial femoral condyle. Small joint effusion. Suspected minimal undersurface fraying of the posterior horn of the medial meniscus. Reviewed, dictated and finalized at [facility]. Impression: Extensive bone infarcts. Correlate clinically for potential contributing underl oliva etiologies. Chondromalacia patella with additional focal high-grade chondral lesion of the inner aspect of the medial femoral condyle. Small joint effusion. Suspected minimal undersurface fraying of the posterior horn of the medial meni scus.
== END 2024-08-07 10:26 | disposition home or self-care (01) ==
PROVIDERS: PCP Internal Medicine; Visit Provider Orthopaedic Surgery
DX: M25.462 Effusion, left knee (principal)
CPT/HCPCS: 73721

== ENCOUNTER 2024-08-19 09:52 | Outpatient (CLI) | payer OTHER, SELFPAY ==
[2024-08-19 13:09] LABS: Basophils Percent Auto 0.5 % (0.2-1.2); Eosinophils Absolute Auto 0.2 K/mm3 (0-0.3); Eosinophils Percent Auto 2.3 % (0-4.4); Hematocrit 40.7 % (42.0-52.0); Immature Granulocyte Absolute 0.05 K/mm3 (0.00-0.031); Immature Granulocyte Percent A 0.6 % (0-0.5); Lymphocytes Absolute Auto 3.09 K/mm3 (0.9-3.2); Mean Corpuscular HGB Conc 31.9 g/dl (32-36); Mean Corpuscular Hemoglobin 33.3 pg (26-34); Mean Corpuscular Volume 104.4 fl (80-100); Mean Platelet Volume 9.7 fl (7.4-10.4); Monocytes Absolute Auto 0.7 K/mm3 (0.1-0.6); Monocytes Percent Auto 7.9 % (2.6-8.5); Neutrophils Absolute Auto 4.3 K/mm3 (1.3-6.7); Neutrophils Percent Auto 51.7 % (45.5-73.1); Platelet Count Result 517 k/mm3 (150-375); Red Cell Distribution Width 13.9 % (11.5-14.5); White Blood Count 8.4 K/mm3 (4.5-10.0)
[2024-08-19 13:18] LABS: Alanine Aminotransferase 20 U/L (6-50); Albumin Level 4.1 g/dL (3.5-5.1); Alkaline Phosphatase 81 U/L (38-126); Anion Gap 4 mmol/L (4-12); Aspartate Amino Transferase 52 U/L (17-59); Bilirubin,Total 0.3 mg/dL (0.2-1.3); Blood Urea Nitrogen 5 mg/dL (9-20); Calcium 10.1 mg/dL (8.4-10.2); Carbon Dioxide 28 mmol/L (22-30); Chloride 106 mmol/L (98-107); Cholesterol 220 mg/dL (0-200); Estimated Glomerular Filt Rate > 60; Glucose 132 mg/dL (65-110); HDL Direct 40 mg/dL; Potassium 4.8 mmol/L (3.4-5.0); Sodium 138 mmol/L (137-145); Total Protein 7.3 g/dL (6.3-8.2); Triglycerides 109 mg/dL (<150)
[2024-08-19 13:42] LABS: LDL Cholesterol Direct 146 mg/dL
[2024-08-19 13:45] LABS: Prostate Specific Antigen 1.1 ng/mL (< OR = 4.0)
[2024-08-19 15:58] LABS: Hemoglobin A1C 6.9 % (<5.7)
== END 2024-08-19 09:53 | disposition home or self-care (01) ==
LOC: ANHGOSHLAB 09:53
PROVIDERS: PCP Internal Medicine; Visit Provider Nurse Practitioner
DX: Z12.5 Encounter for screening for malignant neoplasm of prostate (principal); I10 Essential (primary) hypertension; Z13.220 Encounter for screening for lipoid disorders; Z13.228 Encounter for screening for other metabolic disorders; R73.01 Impaired fasting glucose
CPT/HCPCS: 36415; 80053; 80061; 83036; 84153; 85025; G0103

== ENCOUNTER 2024-09-13 01:32 | Day surgery (SDC) | payer BC, OTHER, SELFPAY ==
[2024-09-07 09:48] VITALS: BMI 21.4
--- NOTE | 2024-09-07 10:09 | SUR.PREOP ---
Report to the Outpatient Waiting Room, entrance under the green pavilion located off [facility], at time 0730 on date 09/13/24. Planned Procedure Time: 0930.? Time changes happen often and if your time is changed the preop area will call you the afternoon before. - You and your visitor will be asked to self-screen and do not enter if you have any COVID symptoms. Please call surgeon if you need to reschedule. - A mask is optional within the hospital at this time. Patients may have clear liquids (water, carbonated beverages, clear teas, apple juice) until 3 hours prior to surgery with a maximum of 20 ounces. - No food from midnight until time of surgery and no smoking, or chewing tobacco (or any form of nicotine). No chewing gum, candy or mints. - Infants may have breast milk until 4 hours before surgery, formula 6 hours prior to surgery. - Children will be allowed to drink immediately following surgery.? If applicable, please bring a bottle or sippy cup to assist with drinking. Juice, water, soda, and popsicles are readily available.? For infants on formula, please bring formula the day of surgery.? Pacifiers are allowed. Take only the following medications with a SIP of water on the morning of surgery: AMLODIPINE DO NOT STOP ANY OF YOUR OTHER PRESCRIPTION MEDICATIONS PRIOR TO SURGERY EXCEPT THE FOLLOWING Hold all vitamins and supplements for 3 days per anesthesiologist. Medications to discontinue per physician HOLD ALL VITAMINS FOR 3 DAYS Date to take last dose 09/04/24 Please no make-up, nail tongan, hairspray, perfume, deodorant, or body powder the day of surgery.? No jewelry (including any body piercings) or valuables the day of surgery, leave them at home.? Please take a shower or bath the night before, or the morning of, surgery with an antibacterial soap.? Wear comfortable, loose fitting clothing.? Children are encouraged to wear pajamas. - Jewelry must be removed prior to entering the operating room.? Rings and piercings that are not removed may be cut off. - The hospital will not accept responsibility for valuables.? - Please leave all valuables, including medications, at home the day of surgery. If you are going home after surgery, a licensed wheelchair driver must drive you home.? - NO public transportation without another adult if you receive anesthesia. - We recommend that an adult stay with you for 24 hours following discharge. - We also recommend that you do not drive, make important decision, drink alcoholic beverages, or take any drugs that were not prescribed by your health care provider for at least 24 hours after your discharge time. For Pediatric surgeries, we recommend two adults accompany the child home. Follow any additional instructions given to you from your surgeon. Telephone instructions given to JACKI GIL and asked if any additional questions and then verbalized understanding. Patient advised to call surgeon office or pre surgery nurse liaison [phone] if any additional questions.
--- NOTE | 2024-09-09 07:12 | PM.IMHP ---
H&P: HPI History of Present Illness Date/Time: 09/09/24 07:12 Chief Complaint: Patient has left knee pain with catching and locking. Treatment to date has been conservative in our unfortunately has been unresponsive to treatment. He would like to consider arthroscopic intervention. Review of Systems Musculoskeletal: Musculoskeletal: Reports arthralgias, Reports joint swelling and Reports stiffness Neurologic: Reports abnormal gait PMFSH Past Medical History Medical History Elevated transaminase level Basal cell carcinoma of head Weight loss GERD (gastroesophageal reflux disease) Family History Family History Mother Breast cancer Social History Social History Smoking packs per day: 1 Smoking cigarettes per day: 20.0 Years smoked: 47 Smoking pack-years: 47.00 Smoking status: Current every day smoker Tobacco type: cigarettes Alcohol intake: former Substance use: never Substance use type: does not use Do You Feel Safe in your Home?: Yes Lack of Transportation: No Lack of Food: Never True Current Housing: I Have Housing Concerned About Future Housing: No Difficulty Paying Gas/Electric Bills: No Difficulty Paying for Meds: No Currently Unemployed: No Education: Trade/Vocational Certificate Difficulty w/ Childcare or Family Care: No Living arrangements: with family Occupation/Education: occupation 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 Gender identity (if verbalized by the patient): Male Spiritual care concerns: No Agree to blood products: No Meds Home Medications and Allergies Home Medications ?Medication ?Instructions ?Recorded ?Confirmed ?Type magnesium chloride 64 mg 64 mg PO DAILY 7 days #7 tabs 04/09/24 09/07/24 Rx (magnesium chloride) tablet,delayed release thiamine HCl (vitamin B1) 100 mg 100 mg PO DAILY #30 caps 04/09/24 09/07/24 Rx capsule amlodipine 10 mg tablet 10 mg PO DAILY #90 tabs 05/13/24 09/07/24 Rx ascorbate calcium (vitamin C) 1 tablet PO DAILY@0630 08/19/24 09/07/24 History calcium carbonate 1 cap PO DAILY 08/19/24 09/07/24 History cholecalciferol (vitamin D3) 1 tablet PO DAILY 08/19/24 09/07/24 History coenzyme Q10 1 cap PO DAILY 08/19/24 09/07/24 History multivitamin 1 tablet PO DAILY 08/19/24 09/07/24 History omega-3 fatty acids [[place] 3 Fish 1 cap PO DAILY 08/19/24 09/07/24 History Oil] turmeric 1 cap PO DAILY 08/19/24 09/07/24 History Allergies Allergy/AdvReac Type Severity Reaction Status Date / Time No Known Allergies Allergy Verified 09/07/24 10:26 Exam Narrative: On exam he has mechanical catching and locking. He has a tenderness along the joint line. He has a positive Juanjose's. Neurologically he is intact. He has pain with ambulation. Radiology Reports: Comments: Magnetic Resonance Report Signed Patient: Kody Franco MRI of the left knee Clinical history: Pain Technique: Coronal proton density and proton density-weighted images, sagittal proton-density and T2 fat-sat images, and axial proton-density fat-saturated images were acquired. Findings: Anterior and posterior cruciate ligaments are intact. Medial collateral ligament and the lateral collateral ligament complex are intact. Popliteus tendon is intact. Questionable minimal undersurface fraying of the posterior horn of the medial meniscus without definite linear tear. No lateral meniscal tear seen. There is extensive high-grade chondromalacia over the medial patellar facet extending to the patellar apex. There is mild chondromalacia the femoral trochlea. There is focal high-grade chondral lesion at the inner aspect of the medial femoral condyle. There are extensive bone infarcts of the proximal tibia and distal femur. Extensor mechanism is intact. Small joint effusion present. No Rivas's cyst. Impression: Extensive bone infarcts. Correlate clinically for potential contributing underlying etiologies. Chondromalacia patella with additional focal high-grade chondral lesion of the inner aspect of the medial femoral condyle. Small joint effusion. Suspected minimal undersurface fraying of the posterior horn of the medial meniscus. Reviewed, dictated and finalized at location M. Electronically signed by Deshawn Knee X-Ray 04/07/24 Knee MRI 08/10/24 Orthopedics Result Report 07/20/24 Assessment and Plan Assessment and plan (1) Acute medial meniscus tear of left knee: Qualifiers: Encounter type: sequela Qualified Code(s): S83.242S - Other tear of medial meniscus, current injury, left knee, sequela Code(s): S83.242A - Other tear of medial meniscus, current injury, left knee, initial encounter Status: Acute Assessment and Plan: Patient has meniscal tear her. Is been unresponsive to conservative treatment today. He would like to consider arthroscopic intervention. We discussed risks, benefits, limitations, and alternatives in detail. I will proceed per his request. He realizes that he can have pain also from the bony infarcts that he has. (2) Knee pain with avascular necrosis determined by x-ray: Code(s): M87.88 - Other osteonecrosis, other site Status: Acute
[2024-09-13] VITALS (9 sets, daily range): BP systolic 100–136; BP diastolic 64–84; PULSE 59–79; RESP 12–20; TEMP 36.1–36.6; O2SAT 96–100
[2024-09-13] MEDS: KETOROLAC 15 MG/ML VIAL (*BKC) IV PUSH (06:37)
[2024-09-13] MEDS: ACETAMINOPHEN 500 MG TABLET 1000 MG PO (06:37)
--- NOTE | 2024-09-13 06:51 | WPDANESEPPF ---
Anes - Initial Pre Proc Eval Procedure: Operation Date: 09/13/24 07:30 Proposed Procedures p Left Knee Arthroscopy, Partial Meniscectomy, Proceed As Indicated - Dex Alegre MD Date/Time: 09/13/24 06:51 Surgeon: Dex Alegre MD Pre Op Diagnosis: left knee medial meniscal tear Patient Data Age: 64 Gender: M Height: 1.7 m Weight: 60.2 kg Last Vital Signs Temp 36.6 C 09/13/24 06:10 Pulse 71 09/13/24 06:10 Resp 20 09/13/24 06:10 BP 136/76 09/13/24 06:10 Pulse Ox 100 09/13/24 06:10 O2 Del Method Room Air 09/13/24 06:10 Allergies Allergy/AdvReac Type Severity Reaction Status Date / Time No Known Allergies Allergy Verified 09/13/24 06:16 Home Medications ?Medication ?Instructions ?Recorded ?Confirmed ?Type magnesium chloride 64 mg 64 mg PO DAILY 7 days #7 tabs 04/09/24 09/13/24 Rx (magnesium chloride) tablet,delayed release thiamine HCl (vitamin B1) 100 mg 100 mg PO DAILY #30 caps 04/09/24 09/13/24 Rx capsule amlodipine 10 mg tablet 10 mg PO DAILY #90 tabs 05/13/24 09/13/24 Rx ascorbate calcium (vitamin C) 1 tablet PO DAILY@0630 08/19/24 09/13/24 History calcium carbonate 1 cap PO DAILY 08/19/24 09/13/24 History cholecalciferol (vitamin D3) 1 tablet PO DAILY 08/19/24 09/13/24 History coenzyme Q10 1 cap PO DAILY 08/19/24 09/13/24 History multivitamin 1 tablet PO DAILY 08/19/24 09/13/24 History omega-3 fatty acids [[place] 3 Fish 1 cap PO DAILY 08/19/24 09/13/24 History Oil] turmeric 1 cap PO DAILY 08/19/24 09/13/24 History Patient hx anesthesia problems: none Family hx anesthesia problems: none Results Review: All pre-operative results and documents have been reviewed as part of the pre-operative evaluation. [facility] Past Medical History Medical History (Updated 09/13/24 @ 06:51 by Ralph Cronin MD) Prediabetes History of tuberculosis exposure Essential hypertension Elevated transaminase level Basal cell carcinoma of head Weight loss GERD (gastroesophageal reflux disease) Family History Family History Mother Breast cancer Social History Social History Smoking packs per day: 1 Smoking cigarettes per day: 20.0 Years smoked: 47 Smoking pack-years: 47.00 Smoking status: Current every day smoker Tobacco type: cigarettes Alcohol intake: former Substance use: never Substance use type: does not use Do You Feel Safe in your Home?: Yes Lack of Transportation: No Lack of Food: Never True Current Housing: I Have Housing Concerned About Future Housing: No Difficulty Paying Gas/Electric Bills: No Difficulty Paying for Meds: No Currently Unemployed: No Education: Trade/Vocational Certificate Difficulty w/ Childcare or Family Care: No Living arrangements: with family Occupation/Education: occupation Additional occupation/education comments: [employer] Gender identity (if verbalized by the patient): Male Spiritual care concerns: No Agree to blood products: No Anes - Eval Final PreProcedure Day of Procedure 09/13/24 06:51 Patient weight: normal Heart: regular rate and rhythm Lungs: clear to auscultation Airway: Mallampati scale class 1 Neurological: alert and oriented Last oral intake: >/= 8 hours ASA classification: III Emergent: no Anesthetic plan: proceed Anesthesia type and monitoring: general LMA and standard monitoring Results Review: All pre-operative results and documents have been reviewed as part of the pre-operative evaluation. Informed Consent: The patient's anesthetic plan and its attendant risks and benefits were discussed with the patient/family/POA. Questions were solicited and answers provided to the satisfaction of the patient/family/POA.
[2024-09-13 06:56] LABS: Glucose Point of Care 142 mg/dl (65-105)
[2024-09-13] MEDS: LACTATED RINGERS 1,000 ML 30 ML IV CONT (07:00)
--- NOTE | 2024-09-13 07:03 | WPDHPUPDATE1 ---
History and Physical Update Update Date/Time: 09/13/24 07:03 History and Physical has been reviewed, including an updated exam of the patient. There are NO changes in the patient's condition. Risks, benefits, and alternatives have been discussed and questions answered. Patient agrees to proceed with procedure.
[2024-09-13] MEDS: LIDO 1%/EPINEPHRINE 1:100,000 50 ML VIAL 20 ML INFILTRATE (07:23)
[2024-09-13] MEDS: ceFAZolin 2 GM/D5W 50 ML 2 GM/50 ML BAG IVPB (07:23)
--- NOTE | 2024-09-13 07:56 | P.OP_ITS ---
Procedure Note - Detailed Date of Procedure 09/13/24 Pre-op Diagnosis Medial meniscal tear left knee Post-op Diagnosis Same Procedure Performed LEFT knee arthroscopy with partial meniscectomy Surgeon Dex Alegre MD Anesthesia General Indications Pain, Locking and Catching Description of Procedure Patient brought to operating room # 7. An anesthetic was administered. The knee was sterilely prepped and draped in the usual manner. Standard portals were used. Superior medial portal was used for the outflow cannula, inferior lateral portal was used for the scope, inferior medial portal was used for the instruments. Arthroscopy was performed, the patellar femoral joint degenerative changes. The medial compartment showed a complex tear. The lateral compartment showed fraying. The ACL was intact. Using baskets and srinivasan the meniscal tea r was trimmed back to a stable base so the nothing further could be pulled into the joint. Any loose or delaminated fragments were gently trimmed to a stable base. At this point the instruments were withdrawn, sutures placed and patient left the operating room in satisfactory condition. Estimated Blood Loss 20 Drains No Packing No Pathology None sent Complications No immediate complications Condition Stable Disposition PACU [facility] Billing Surgery - Charge Forward: Surgery Billing ([id number] Scope, MMT)
[2024-09-13 08:08] LABS: Glucose Point of Care 146 mg/dl (65-105)
[2024-09-13] MEDS: oxyCODONE HCL (*CRX) 5 MG TAB IR PO (09:10)
== END 2024-09-13 09:59 | disposition home or self-care (01) ==
PROVIDERS: PCP Internal Medicine; Visit Provider Orthopaedic Surgery
PROC: (CPT 29870; principal; 2024-09-13 07:30)
DX: M23.332 Other meniscus derangements, other medial meniscus, left knee (principal); F17.210 Nicotine dependence, cigarettes, uncomplicated; Z79.899 Other long term (current) drug therapy
CPT/HCPCS: 29881; 82948; A9270; J0690; J1885; J2003; J2004; J2250; J2405; J2704; J3010; J7120

== ENCOUNTER 2024-11-10 16:13 | Outpatient (CLI) | payer OTHER, SELFPAY ==
--- NOTE | ~2024-11-10 | US_ITS ---
US soft tissue head and neck 11/10/2024 16:41 Indication: Palpable abnormality lateral aspect of the posterior right upper neck for one year. No associated pain. Procedure: Ultrasound of the right upper neck, posterior lateral soft tissues Comparison: No prior studies for comparison. Findings: In the area palpable concern there is a parallel oriented hypoechoic mass located within the posterior lateral soft tissues in the right upper neck. The lesion measures 3.2 x 2.3 x 0.7 cm. The mass demonstrates horizontal striations oriented parallel to the skin surface. No appreciable internal vascularity or posterior acoustic features. Impression: 1: Hypoechoic soft tissue mass measuring up to 3.2 cm in the area of palpable concern. Differential diagnosis includes fibrous lesions/fibroma, lipoma, scar tissue/posttraumatic fibrous change and less likely low-grade soft tissue neoplasm (e.g. fibromatosis, desmoid tumor). Correlate with clinical history of trauma, prior surgery or slow growth. If the lesion is been stable for year and remains asymptomatic continued clinical observation with repeat imaging in 6-12 months may be reasonable. If an enlarging or symptomatic recommend MRI of the neck with contrast. Reviewed, dictated and finalized at location [facility]. Impression: 1: Hypoechoic soft tissue mass measuring up to 3.2 cm in the area of palpable c oncern. Differential diagnosis includes fibrous lesions/fibroma, lipoma, scar t issue/posttraumatic fibrous change and less likely low-grade soft tissue neopla sm (e.g. fibromatosis, desmoid tumor). Correlate with clinical history of traum a, prior surgery or slow growth. If the lesion is been stable for year and lotus ins asymptomatic continued clinical observation with repeat imaging in 6-12 mon ths may be reasonable. If an enlarging or symptomatic recommend MRI of the neck with contrast.
== END 2024-11-10 16:14 | disposition home or self-care (01) ==
PROVIDERS: PCP Internal Medicine; Visit Provider Nurse Practitioner
DX: R22.9 Localized swelling, mass and lump, unspecified (principal)
CPT/HCPCS: 76536

== ENCOUNTER 2024-11-11 09:28 | Outpatient (RCR) | payer OTHER, SELFPAY ==
--- NOTE | 2024-11-17 15:40 | PCCDE ---
11/11/24 DSMT Consult completed.
== END 2025-02-01 11:15 | disposition home or self-care (01) ==
LOC: ANHDMC 09:28
PROVIDERS: PCP Internal Medicine; Visit Provider Nurse Practitioner
DX: E11.9 Type 2 diabetes mellitus without complications (principal); Z71.89 Other specified counseling
CPT/HCPCS: G0108

== ENCOUNTER 2024-11-11 11:00 | Outpatient (RCR) | payer OTHER, SELFPAY ==
--- NOTE | 2024-10-21 13:58 | OPREHPOC ---
Outpatient Therapy Plan of Care This is a Multidisciplinary Plan of Care that may contain components documented by all disciplines (PT, OT, and ST.) PT Problem 1 PT Problem #1 Knowledge Deficit PT Goal 1 Goal / Goal Update [place] with HEP Target Visit 4 PT Goal 2 Goal / Goal Update Report no pain greater than 2/10 for 2 consecutive weeks PT Problem 2 PT Problem #2 Impaired Strength PT Goal 1 Goal / Goal Update Improve gross left knee strength to 5/5 to improve stability with ADL performance Target Visit 8 PT Problem 3 PT Problem #3 Impaired Gait PT Goal 1 Goal / Goal Update 1. Ambulate with even stride length bilaterally 2. Demonstrate reciprocal ascension and descent of stairs Target Visit 8
--- NOTE | 2024-10-21 13:58 | PTOPEVAL1 ---
Assessment and note entered by Fidencio Jack, PT Evaluation Information Assessment Status Evaluation ICD-10 Condition Codes (PT) Pain in left knee M25.562 Onset 09/13/24 Subjective Information Reports that he has been having trouble off and on for a while and underwent meniscus removal in August. Still having some swelling and difficulty with full stride. He has been having trouble with pressure on the knee as well. Denies any pain at rest. 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 Would like to get back to walking more normally soon. Assessment PT Clinical Summary Patient educated in knee recovery including relief of apprehension and exercises to address strength and gait cycle deficits. At this time only true ROM deficit noted in gastroc limiting terminal stance of gait. 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 Plan of Care Interventions Gait Training,Neuro Re-education,Therapeutic Activities,Therapeutic Exercise PT Services Indicated Yes Treatment Frequency and 1-2x/week for 6 visits Duration These treatments will address the objective and functional deficits as defined above. The patient will be advanced safely and appropriately in order for the patient to progress towards his/her prior level of function. Additional exercises will be introduced and as well as a comprehensive home exercise program upon discharge, if needed, ?to ensure carryover of functional gains achieved in the clinic. This treatment plan has been reviewed and agreement upon by the patient.
--- NOTE | 2024-10-29 09:07 | PCPTNOTE ---
pt called and canceled today's appointment due to illness.
--- NOTE | 2024-11-11 11:55 | OPREHPOC ---
Outpatient Therapy Plan of Care This is a Multidisciplinary Plan of Care that may contain components documented by all disciplines (PT, OT, and ST.) PT Problem 1 PT Problem #1 Knowledge Deficit PT Goal 1 Goal / Goal Update [place] with HEP Target Visit 4 Progress Met PT Goal 2 Goal / Goal Update Report no pain greater than 2/10 for 2 consecutive weeks Progress Met PT Problem 2 PT Problem #2 Impaired Strength PT Goal 1 Goal / Goal Update Improve gross left knee strength to 5/5 to improve stability with ADL performance Target Visit 8 Progress Met PT Problem 3 PT Problem #3 Impaired Gait PT Goal 1 Goal / Goal Update 1. Ambulate with even stride length bilaterally 2. Demonstrate reciprocal ascension and descent of stairs Target Visit 8 Progress Met
--- NOTE | 2024-11-11 11:56 | PTOPDC ---
Assessment and note entered by Fidencio Jack, PT Evaluation Information Assessment Status Progress ICD-10 Condition Codes (PT) Pain in left knee M25.562 Onset 09/13/24 Subjective Information States that overall he has been doing well. He is having some issues with walking pivoting during walking. 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 Feels that he has been able to work through things without the knee getting too inflamed. Would like to be discharged at this time. Reported Pain Level Additional Pain Score Comments 3-4/10 stiffness with initial weightbearing on the L LE, but goes away as he move around Assessment PT Clinical Summary Patient has met all goals for therapy at this time and is suitable for discharge to HEP At this time . We strongly reviewed developing a walking program and continuing HEP. Patient was in agreement. Plan of Care PT Services Indicated Yes
== END 2024-11-12 10:02 | disposition home or self-care (01) ==
LOC: ANHPT 11:00
PROVIDERS: PCP Internal Medicine; Visit Provider Orthopaedic Surgery
DX: S83.242S Other tear of medial meniscus, current injury, left knee, sequela (principal)
CPT/HCPCS: 97110; 97116; 97161; 97530